=== PATIENT | male | born 1960 | race Caucasian/White ===

== ENCOUNTER 2017-09-25 20:30 | Emergency (ER) | payer SELFPAY ==
[2017-09-25 20:42] VITALS: BP 154/89; PULSE 82; RESP 20; TEMP 98; O2SAT 95
--- NOTE | 2017-09-25 20:51 | PD ---
HPI Chief Complaint: Alcohol/Drug Intoxication Time Seen by Provider: 20:43 Travel History International Travel<30 days: No Contact w/Intl Traveler<30days: No Traveled to known affect area: No History of Present Illness HPI patient has been sober for several months, for unknown reasons today patient had a relapse and has been drinking alcohol for several hours. pt denies all complaints currently. however is obviously intoxicated which inhibits an accurate history PFSH Social History Alcohol Use: Yes Tobacco Use: Yes Allergies-Medications (Allergen,Severity, Reaction): Coded Allergies: No Known Allergies (Unverified , 09/27/17) Reported Meds & Prescriptions Reported Meds & Active Scripts Active Reported Clonidine (Clonidine HCl) 0.3 Mg Tab 0.3 Mg PO BID Lisinopril 10 Mg Tab 10 Mg PO DAILY Atorvastatin (Atorvastatin Calcium) 40 Mg Tab 40 Mg PO HS Seroquel (Quetiapine Fumarate) 200 Mg Tab 200 Mg PO DAILY Flomax (Tamsulosin HCl) 0.4 Mg Cap 0.4 Mg PO HS Trazodone (Trazodone HCl) 100 Mg Tablet 100 Mg PO HS Review of Systems ROS Limitations: Intoxication Except as stated in HPI: all other systems reviewed are Neg Physical Exam Exam Limitations: Intoxication Narrative GENERAL: SKIN: Warm and dry. HEAD: Atraumatic. Normocephalic. EYES: Pupils equal and round. No scleral icterus. No injection or drainage. ENT: No nasal bleeding or discharge. Mucous membranes pink and moist. NECK: Trachea midline. No JVD. CARDIOVASCULAR: Regular rate and rhythm. RESPIRATORY: No accessory muscle use. Clear to auscultation. Breath sounds equal bilaterally. GASTROINTESTINAL: Abdomen soft, non-tender, nondistended. MUSCULOSKELETAL: Extremities without clubbing, cyanosis, or edema. No obvious deformities. NEUROLOGICAL: Awake and alert. No obvious cranial nerve deficits. Motor grossly within normal limits. Five out of 5 muscle strength in the arms and legs. Normal speech. PSYCHIATRIC: Appropriate mood and affect; insight and judgment normal. Data Data Last Documented VS Vital Signs Date Time Temp Pulse Resp B/P (MAP) Pulse Ox O2 Delivery O2 Flow Rate FiO2 09/26/17 06:32 09/26/17 00:45 80 16 100 Nasal Cannula 2.00 09/25/17 20:42 98.0 Orders Orders Basic Metabolic Panel (Bmp) (09/25/17 20:51) Complete Blood Count With Diff (09/25/17 20:51) Troponin I (09/25/17 20:51) Ct Brain W/O Iv Contrast(Rout) (09/25/17 20:51) Blood Glucose (09/25/17 20:51) Ecg Monitoring (09/25/17 20:51) Iv Access Insert/Monitor (09/25/17 20:51) Oximetry (09/25/17 20:51) Alcohol (Ethanol) (09/25/17 20:51) Tylenol (Acetaminophen) (09/25/17 20:51) Salicylates (Aspirin) (09/25/17 20:51) Sodium Chlor 0.9% 1000 Ml Inj (Ns 1000 M (09/25/17 21:00) Ed Discharge Order (09/26/17 06:25) Labs Laboratory Tests Test 09/25/17 21:05 White Blood Count 9.8 TH/MM3 Red Blood Count 4.48 MIL/MM3 Hemoglobin 13.9 GM/DL Hematocrit 41.5 % Mean Corpuscular Volume 92.7 FL Mean Corpuscular Hemoglobin 31.1 PG Mean Corpuscular Hemoglobin Concent 33.5 % Red Cell Distribution Width 14.3 % Platelet Count 243 TH/MM3 Mean Platelet Volume 8.2 FL Neutrophils (%) (Auto) 55.9 % Lymphocytes (%) (Auto) 29.3 % Monocytes (%) (Auto) 11.2 % Eosinophils (%) (Auto) 2.6 % Basophils (%) (Auto) 1.0 % Neutrophils # (Auto) 5.5 TH/MM3 Lymphocytes # (Auto) 2.9 TH/MM3 Monocytes # (Auto) 1.1 TH/MM3 Eosinophils # (Auto) 0.3 TH/MM3 Basophils # (Auto) 0.1 TH/MM3 CBC Comment DIFF FINAL Differential Comment Blood Urea Nitrogen 23 MG/DL Creatinine 1.45 MG/DL Random Glucose 119 MG/DL Calcium Level 8.1 MG/DL Sodium Level 142 MEQ/L Potassium Level 3.5 MEQ/L Chloride Level 108 MEQ/L Carbon Dioxide Level 24.5 MEQ/L Anion Gap 10 MEQ/L Estimat Glomerular Filtration Rate 51 ML/MIN Troponin I 0.04 NG/ML Salicylates Level LESS THAN 1.7 MG/DL Acetaminophen Level LESS THAN 2.0 MCG/ML Ethyl Alcohol Level 371 MG/DL MDM Medical Decision Making Medical Screen Exam Complete: Yes Emergency Medical Condition: Yes Medical Record Reviewed: Yes Differential Diagnosis ich v etoh intox v hypoglycemia Narrative Course CT HEAD NEG FOR ICH/SKULL FX...GLUCOSE NORMAL, AND ETOH WAS C/W INTOXICATION Diagnosis Primary Impression: Alcohol intoxication Qualified Codes: F10.920 - Alcohol use, unspecified with intoxication, uncomplicated Disposition: 01 DISCHARGE HOME Condition: Stable (ONCE SOBER, CAN D/C HOME) Santiago Bateman MD Sep 25, 2017 20:51
[2017-09-25 20:56] VITALS: RESP 18; O2SAT 98
[2017-09-25] MEDS ORDERED: TAMS5CAP PO (20:56)
[2017-09-25] MEDS ORDERED: ATOR40TA16 PO (20:56)
[2017-09-25] MEDS ORDERED: SERO200T PO (20:56)
[2017-09-25] MEDS ORDERED: TRAZ100T10 PO (20:56)
[2017-09-25] MEDS ORDERED: SODIUM CHLOR 0.9% 1000 ML INJ 1,000 ML IV ONE (21:00)
[2017-09-25 21:35] LABS: AUTOMATED NEUTROPHIL # 5.5 TH/MM3 (1.8-7.7); BASOPHIL # 0.1 TH/MM3 (0-0.2); EOSINOPHIL # 0.3 TH/MM3 (0-0.4); EOSINOPHIL % 2.6 % (0.0-4.0); HEMATOCRIT 41.5 % (39.0-51.0); HEMO FLAGS DIFF FINAL; LYMPH % 29.3 % (9.0-44.0); LYMPHOCYTE # 2.9 TH/MM3 (1.0-4.8); MEAN CELL VOLUME 92.7 FL (80.0-100.0); MEAN CORPUSCULAR HEMOGLOBIN 31.1 PG (27.0-34.0); MEAN CORPUSCULAR HGB CONC 33.5 % (32.0-36.0); MONO % 11.2 % (0.0-8.0); NEUT % 55.9 % (16.0-70.0); PLATELET COUNT 243 TH/MM3 (150-450); RED BLOOD COUNT 4.48 MIL/MM3 (4.50-5.90); RED CELL DISTRIBUTION WIDTH 14.3 % (11.6-17.2); WHITE BLOOD COUNT 9.8 TH/MM3 (4.0-11.0)
[2017-09-25 22:13] LABS: ANION GAP 10 MEQ/L (5-15); BICARBONATE 24.5 MEQ/L (21.0-32.0); BLOOD UREA NITROGEN 23 MG/DL (7-18); CHLORIDE 108 MEQ/L (98-107); GLOMERULAR FILTRATION RATE 51 ML/MIN (>89); POTASSIUM 3.5 MEQ/L (3.5-5.1); SODIUM (NA) 142 MEQ/L (136-145)
[2017-09-25 22:18] LABS: ACETAMINOPHEN LESS THAN 2.0 MCG/ML (10.0-30.0)
[2017-09-25 22:19] LABS: ALCOHOL 371 MG/DL (0-5)
--- NOTE | 2017-09-25 22:21 | RADRPT ---
EXAM DATE/TIME: 09/25/2017 21:28 [facility] COMPARISON: No previous studies available for comparison. INDICATIONS : Altered mental status. RADIATION DOSE: 55.26 CTDIvol (mGy) MEDICAL HISTORY : Non-responsive. SURGICAL HISTORY : Non-responsive. ENCOUNTER: Initial ACUITY: 1 day PAIN SCALE: Non-responsive LOCATION: cranial TECHNIQUE: Multiple contiguous axial images were obtained of the head. Using automated exposure control and adj ustment of the mA and/or kV according to patient size, radiation dose was kept as low as reasonably a chievable to obtain optimal diagnostic quality images. DICOM format image data is available electro nically for review and comparison. FINDINGS: CEREBRUM: The ventricles are normal for age. No evidence of midline shift, mass lesion, hemorrhage or acute in farction. No extra-axial fluid collections are seen. POSTERIOR FOSSA: The cerebellum and brainstem are intact. The 4th ventricle is midline. The cerebellopontine angle i s unremarkable. EXTRACRANIAL: The visualized portion of the orbits is intact. SKULL: The calvaria is intact. No evidence of skull fracture. CONCLUSION: Negative noncontrast CT brain. Felipe Walton MD on September 25, 2017 at 22:19 Board Certified Radiologist. This report was verified electronically.
[2017-09-26 00:45] VITALS: BP 126/70; PULSE 80; RESP 16; O2SAT 100
[2017-09-26] MEDS ORDERED: LISI10TA3 PO (19:07)
[2017-09-26] MEDS ORDERED: CLON0.3T PO (19:07)
== END 2017-09-26 07:17 | disposition home or self-care (01) ==
LOC: NEPD 20:30
DX: F10.129 Alcohol abuse with intoxication, unspecified (principal); Z79.899 Other long term (current) drug therapy
CPT/HCPCS: 70450; 80048; 80307; 84484; 85025; 96360; 96361; 99285; J7030

== ENCOUNTER 2017-09-26 14:24 | Emergency (ER) | payer OTHER ==
[~2017-09-26] VITALS: Ht 165.1 cm; Wt 97.5 kg
[~2017-09-26 14:24] MED LIST: ATOR40TA16 PO; SERO200T PO; TAMS5CAP PO; TRAZ100T10 PO
[2017-09-26 14:25] VITALS: BP 154/77; PULSE 90; RESP 20; TEMP 98.6; O2SAT 98
[2017-09-26] MEDS ORDERED: SODIUM CHLORIDE 0.9% FLUSH 10 ML FLUSH IVF PRN (15:00)
[2017-09-26] MEDS ORDERED: ASPIRIN 325 MG TAB PO ONE (15:00)
--- NOTE | 2017-09-26 15:05 | PD ---
HPI Chief Complaint: Chest Pain Time Seen by Provider: 15:02 Travel History International Travel<30 days: No Contact w/Intl Traveler<30days: No Traveled to known affect area: No History of Present Illness HPI 57 YO M with PMH of COPD, HTN, schizophrenia, depression presents to the ED for evaluation of 32 hour history of 8/10 right-sided chest pain that radiates to the left side. Patient endorses accompanying diaphoresis, palpitations, shortness of breath. He denies nausea and vomiting. 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 No alleviating factors or exacerbating factors reported. Patient denies recent history of fevers, productive cough. He also complains of depression, suicidal ideation. He states that he hears voices that tell him "just to end it." He has no specific plan. He thinks he may be more depressed because his daughter just had a baby. He states that he had a negative heart catheter 2 months ago in [facility]. He denies any illicit drug use or alcohol use. However, chart review reveals the patient was just discharged this morning after being intoxicated in the ED. PFSH Past Medical History High Cholesterol: Yes Social History Alcohol Use: Yes Tobacco Use: No Substance Use: No Allergies-Medications (Allergen,Severity, Reaction): Coded Allergies: No Known Allergies (Unverified , 09/25/17) Reported Meds & Prescriptions Reported Meds & Active Scripts Active Reported Atorvastatin (Atorvastatin Calcium) 40 Mg Tab 40 Mg PO HS Seroquel (Quetiapine Fumarate) 200 Mg Tab 200 Mg PO DAILY Flomax (Tamsulosin HCl) 0.4 Mg Cap 0.4 Mg PO HS Trazodone (Trazodone HCl) 100 Mg Tablet 100 Mg PO HS Review of Systems Except as stated in HPI: all other systems reviewed are Neg Physical Exam Narrative GENERAL: Well-nourished, well-developed obese white male in no acute distress. PSYCHIATRIC: Calm demeanor. Cooperative. He is not responding to internal stimuli. SKIN: Focused skin assessment warm/dry. HEAD: Normocephalic. EYES: No scleral icterus. No injection or drainage. NECK: Supple, trachea midline. No JVD or lymphadenopathy. CARDIOVASCULAR: Regular rate and rhythm without murmurs, gallops, or rubs. CHEST: Nontender throughout without deformity or crepitus. RESPIRATORY: Breath sounds clear and equal bilaterally. No accessory muscle use. GASTROINTESTINAL: Abdomen protuberant, soft, non-tender, nondistended. Active bowel sounds. MUSCULOSKELETAL: No cyanosis, or edema. BACK: Nontender without obvious deformity. No CVA tenderness. Data Data Last Documented VS Vital Signs Date Time Temp Pulse Resp B/P (MAP) Pulse Ox O2 Delivery O2 Flow Rate FiO2 09/26/17 15:49 97 Room Air 09/26/17 14:25 98.6 90 20 Orders Orders Complete Blood Count With Diff (09/26/17 15:00) Comprehensive Metabolic Panel (09/26/17 15:00) Electrocardiogram (09/26/17 15:00) Psych Screen (09/26/17 15:00) Drug Screen, Random Urine (09/26/17 15:00) Alcohol (Ethanol) (09/26/17 15:00) Troponin I (09/26/17 15:00) Ckmb (Isoenzyme) Profile (09/26/17 15:00) Magnesium (Mg) (09/26/17 15:00) Prothrombin Time / Inr (Pt) (09/26/17 15:00) Act Partial Throm Time (Ptt) (09/26/17 15:00) Chest, Single Ap (09/26/17 15:00) Ecg Monitoring (09/26/17 15:00) Bilateral Bp Monitoring (09/26/17 15:00) Iv Access Insert/Monitor (09/26/17 15:00) Oximetry (09/26/17 15:00) Aspirin (Aspirin) (09/26/17 15:00) Sodium Chloride 0.9% Flush (Ns Flush) (09/26/17 15:00) CKMB (09/26/17 15:36) CKMB% (09/26/17 15:36) Troponin I (09/26/17 18:00) Sodium Chlor 0.9% 1000 Ml Inj (Ns 1000 M (09/26/17 17:00) Calcium Carbonate (Oscal) (09/26/17 17:00) Labs Laboratory Tests Test 09/26/17 15:35 09/26/17 15:36 Urine Opiates Screen NEG Urine Barbiturates Screen NEG Urine Amphetamines Screen NEG Urine Benzodiazepines Screen NEG Urine Cocaine Screen NEG Urine Cannabinoids Screen NEG White Blood Count 9.2 TH/MM3 Red Blood Count 4.30 MIL/MM3 Hemoglobin 13.3 GM/DL Hematocrit 39.7 % Mean Corpuscular Volume 92.2 FL Mean Corpuscular Hemoglobin 30.9 PG Mean Corpuscular Hemoglobin Concent 33.6 % Red Cell Distribution Width 14.1 % Platelet Count 233 TH/MM3 Mean Platelet Volume 8.1 FL Neutrophils (%) (Auto) 71.2 % Lymphocytes (%) (Auto) 18.6 % Monocytes (%) (Auto) 8.7 % Eosinophils (%) (Auto) 0.7 % Basophils (%) (Auto) 0.8 % Neutrophils # (Auto) 6.6 TH/MM3 Lymphocytes # (Auto) 1.7 TH/MM3 Monocytes # (Auto) 0.8 TH/MM3 Eosinophils # (Auto) 0.1 TH/MM3 Basophils # (Auto) 0.1 TH/MM3 CBC Comment DIFF FINAL Differential Comment Prothrombin Time 10.7 SEC Prothromb Time International Ratio 1.0 RATIO Activated Partial Thromboplast Time 25.4 SEC Blood Urea Nitrogen 26 MG/DL Creatinine 1.56 MG/DL Random Glucose 98 MG/DL Total Protein 6.4 GM/DL Albumin 3.3 GM/DL Calcium Level 7.9 MG/DL Magnesium Level 2.2 MG/DL Alkaline Phosphatase 75 U/L Aspartate Amino Transf (AST/SGOT) 22 U/L Alanine Aminotransferase (ALT/SGPT) 27 U/L Total Bilirubin 0.3 MG/DL Sodium Level 143 MEQ/L Potassium Level 3.6 MEQ/L Chloride Level 110 MEQ/L Carbon Dioxide Level 22.3 MEQ/L Anion Gap 11 MEQ/L Estimat Glomerular Filtration Rate 46 ML/MIN Total Creatine Kinase 438 U/L Creatine Kinase MB 3.3 NG/ML Creatine Kinase MB % 0.8 % Troponin I 0.04 NG/ML Ethyl Alcohol Level 212 MG/DL [facility] Medical Decision Making Medical Screen Exam Complete: Yes Emergency Medical Condition: Yes Differential Diagnosis Chest pain versus ACS versus malingering versus Adjustment disorder versus anxiety versus bipolar versus depression versus dementia versus electrolyte disorder versus malingering versus mood disorder versus ODD versus psychosis versus PTSD versus schizophrenia versus schizoaffective disorder versus substance-induced mood disorder versus other Narrative Course 57 YO M with PMH of COPD, HTN, schizophrenia, depression presents to the ED for evaluation of 32 hour history of 8/10 right-sided chest pain that radiates to the left side. Patient endorses accompanying diaphoresis, palpitations, shortness of breath. He denies nausea and vomiting. 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 No alleviating factors or exacerbating factors reported. Patient denies recent history of fevers, productive cough. He also complains of depression, suicidal ideation. He states that he hears voices that tell him "just to end it." He thinks he may be more depressed because his daughter just had a baby. He states that he had a negative heart catheter 2 months ago in [facility]. He denies any illicit drug use or alcohol use. However, chart review reveals the patient was just discharged this morning after being intoxicated in the ED. Vitals reviewed. Physical exam is reassuring. EKG: Rate 89, sinus rhythm with first-degree AV block. LAD. Q wave in V3 V4. Reviewed by CXR: No acute disease. Cardiac enzymes negative 1. BUN 26. Creatinine 1.56. Calcium 7.9. Patient was administered 1 L normal saline, 1 g calcium by mouth. On recheck he is sleeping. We'll order a second troponin for 6 PM. He is medically clear for psychiatric evaluation. Stefania Ang Sep 26, 2017 15:05
--- NOTE | 2017-09-26 15:40 | RADRPT ---
EXAM DATE/TIME: 09/26/2017 15:18 [facility] COMPARISON: No previous studies available for comparison. INDICATIONS : Chest pain. MEDICAL HISTORY : Chronic obstructive pulmonary disease. SURGICAL HISTORY : None. ENCOUNTER: Initial ACUITY: 2 days PAIN SCORE: 7/10 LOCATION: Bilateral chest FINDINGS: A single view of the chest demonstrates the lungs to be symmetrically aerated without evidence of mas s, infiltrate or effusion. The cardiomediastinal contours are unremarkable. Osseous structures are intact. CONCLUSION: 1. Negative portable chest. Kendrick Moreira MD on September 26, 2017 at 15:38 Board Certified Radiologist. This report was verified electronically.
[2017-09-26 15:49] VITALS: O2SAT 97
[2017-09-26 16:04] LABS: AUTOMATED NEUTROPHIL # 6.6 TH/MM3 (1.8-7.7); BASOPHIL # 0.1 TH/MM3 (0-0.2); BASOPHIL % 0.8 % (0.0-2.0); EOSINOPHIL # 0.1 TH/MM3 (0-0.4); EOSINOPHIL % 0.7 % (0.0-4.0); HEMATOCRIT 39.7 % (39.0-51.0); HEMO FLAGS DIFF FINAL; LYMPH % 18.6 % (9.0-44.0); LYMPHOCYTE # 1.7 TH/MM3 (1.0-4.8); MEAN CELL VOLUME 92.2 FL (80.0-100.0); MEAN CORPUSCULAR HEMOGLOBIN 30.9 PG (27.0-34.0); MEAN CORPUSCULAR HGB CONC 33.6 % (32.0-36.0); MONO % 8.7 % (0.0-8.0); NEUT % 71.2 % (16.0-70.0); PLATELET COUNT 233 TH/MM3 (150-450); RED CELL DISTRIBUTION WIDTH 14.1 % (11.6-17.2); WHITE BLOOD COUNT 9.2 TH/MM3 (4.0-11.0)
[2017-09-26 16:10] LABS: APTT (PATIENT) 25.4 SEC (24.3-30.1); PROTHROMBIN TIME - PATIENT 10.7 SEC (9.8-11.6)
[2017-09-26 16:28] LABS: ANION GAP 11 MEQ/L (5-15); AST (GOT) 22 U/L (15-37); BICARBONATE 22.3 MEQ/L (21.0-32.0); BLOOD UREA NITROGEN 26 MG/DL (7-18); CHLORIDE 110 MEQ/L (98-107); GLOMERULAR FILTRATION RATE 46 ML/MIN (>89); MAGNESIUM 2.2 MG/DL (1.5-2.5); POTASSIUM 3.6 MEQ/L (3.5-5.1); SODIUM (NA) 143 MEQ/L (136-145)
[2017-09-26 16:33] LABS: ALKALINE PHOSPHATASE 75 U/L (45-117); ALT (GPT) 27 U/L (12-78); CREATINE KINASE 438 U/L (39-308); TOTAL BILIRUBIN ADULT 0.3 MG/DL (0.2-1.0)
[2017-09-26 16:34] LABS: ALCOHOL 212 MG/DL (0-5)
[2017-09-26 16:46] LABS: CKMB 3.3 NG/ML (0.5-3.6)
[2017-09-26] MEDS ORDERED: CALCIUM CARBONATE 1.25 GM (CA 500 MG) TAB PO ONE (17:00)
[2017-09-26] MEDS ORDERED: SODIUM CHLOR 0.9% 1000 ML INJ 1,000 ML IV ONE (17:00)
[2017-09-26] MEDS ORDERED: LORazepam 2 MG/ML VIAL IV PUSH ONE (18:30)
[2017-09-26 19:03] VITALS: BP 197/114; RESP 18; O2SAT 96
[2017-09-26] MEDS ORDERED: LISI10TA3 PO (19:07)
[2017-09-26] MEDS ORDERED: CLON0.3T PO (19:07)
[2017-09-26] MEDS ORDERED: LORazepam 2 MG/ML VIAL IV PUSH PRN ×4 (19:30)
[2017-09-26] MEDS ORDERED: LORazepam 1 MG TAB PO PRN (19:30)
[2017-09-26] MEDS ORDERED: FLUMAZENIL 0.5 MG/5 ML VIAL IV PUSH PRN (19:30)
[2017-09-26] MEDS ORDERED: LORazepam 2 MG TAB PO PRN (19:30)
[2017-09-26] MEDS ORDERED: cloNIDine HCL 0.2 MG TAB PO ONE (19:45)
[2017-09-26] MEDS ORDERED: cloNIDine HCL 0.1 MG TAB PO ONE (19:45)
[2017-09-26] MEDS ORDERED: LISINOPRIL 10 MG TAB PO ONE (20:30)
[2017-09-26 21:09] VITALS: BP 179/114; PULSE 78; RESP 18; O2SAT 96
[2017-09-26 22:10] VITALS: BP 184/79; PULSE 79; RESP 18; O2SAT 96
--- NOTE | 2017-09-26 22:38 | PD ---
History of Present Illness Chief Complaint: Chest Pain Time Seen by Provider: 22:25 Travel History International Travel<30 Days: No Contact w/Intl Traveler<30days: No Known affected area: No Legal Status Legal Status: Voluntary History of Present Illness: History of Present Illness HPI 57 year old male with history of alcohol dependence who presents to the emergency department for evaluation of chest pain. Psychiatric screen was ordered on this patient as he reported to ED provider that he was feeling depressed, that he was hearing voices telling him to just end it. Patient had presented to the ED on 26 July with a blood alcohol level of 371. He was allowed to sober up clinically and was discharged. He presents a second time to the emergency room complaining of chest pain. His blood alcohol level at the time of his second visit was 212. He is seen in main ED. He is clinically sober at this time. His speech is clear, logical, goal-directed. There is no evidence of any psychosis, no adarsh , no hypomania. He reports that he has a history of hearing voices inside of his head but that he is not hearing them now. His affect is variable and appropriate. Speech is of normal rate, rhythm, normal tone. Patient reports that he is feeling depressed due to several losses. When asked about the losses he reports he lost his son in a motorcycle accident 15 years ago, his mother one year later, and that his fiance also shortly after. Patient reports that he moved to [place] 2 weeks ago from [place] to be close to his daughter would just had a baby. He had been living in a sober living facility in [place] where he had been for 5 months. He is living now at the [facility] which is also a sober living facility. He alludes to the possibility that he may not have a place to go since he has had a relapse and has began to drink alcohol. There is no suicidal or homicidal ideation, intent, or plan. In terms of psychiatric history he denies any previous psychiatric hospitalization. Denies any previous suicidal attempt. And reports that he began taking trazodone and Seroquel 2 months ago for sleep. PFSH Past Medical History High Cholesterol: Yes Psychiatric History Psychiatric History Hx Psychiatric Treatment: No history of inpatient treatment. No past history of suicidal attempt. Began taking trazodone and Seroquel 2 months ago. History of Inpatient Treatment: No Guns or firearms in home: No Social History male who was born in [place] but raised in [place]. Has a daughter who lives in the area and a 5-month-old granddaughter. 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 Is currently living in a sober living home. Hx Alcohol Use: Yes Hx Tobacco Use: No Hx Substance Use: No Substance Use Type: Alcohol Hx of Substance Use Treatment: Yes Family Psychiatric History Negative Allergies-Medications (Allergen,Severity, Reaction): Coded Allergies: No Known Allergies (Unverified , 09/25/17) Reported Meds & Prescriptions Reported Meds & Active Scripts Active Reported Clonidine (Clonidine HCl) 0.3 Mg Tab 0.3 Mg PO BID Lisinopril 10 Mg Tab 10 Mg PO DAILY Atorvastatin (Atorvastatin Calcium) 40 Mg Tab 40 Mg PO HS Seroquel (Quetiapine Fumarate) 200 Mg Tab 200 Mg PO DAILY Flomax (Tamsulosin HCl) 0.4 Mg Cap 0.4 Mg PO HS Trazodone (Trazodone HCl) 100 Mg Tablet 100 Mg PO HS Review of Systems Cardiovascular: COMPLAINS OF: Chest pain Except as stated in HPI: all other systems reviewed are Neg Mental Status Examination Appearance: Appropriate Consciousness: Alert Orientation: x4 Motor Activity: Other (patient remained in bed) Speech: Unremarkable Language: Adequate Fund of Knowledge: Adequate Attention and Concentration: Adequate Memory: Unremarkable Mood: Appropriate Affect: Appropriate Thought Process & Associations: Intact Thought Content: Appropriate Hallucination Type: None Delusion Type: None Suicidal Ideation: No Suicidal Plan: No Suicidal Intention: No Homicidal Ideation: No Homicidal Plan: No Homicidal Intention: No Insight: Poor Judgment: Adequate [facility] Medical Decision Making Medical Record Reviewed: Yes Assessment/Plan 57-year-old male with history of alcohol dependence who reports he has had a relapse after a 5 month period of sobriety. He presented to the ED yesterday with a blood alcohol level of 371. This afternoon he comes in for complaining of chest pain but was also determined to be under the influence with a blood alcohol level of 212. The patient has been living in a sober living house called the [facility] but I suspect that since he has been drinking he may have lost his residence. The patient reported to ED staff that he was hearing voices but he does not appear to be internally preoccupied and he denies that he is hearing them now. He does not appear to be significantly depressed and shows no significant objective clinical symptoms of depression. He has not suicidal or homicidal at this time. I strongly suspect that his alcohol relapse is prompting this visit to the hospital. He is provided psychoeducation. He is provided with the numbers to [facility] and he is advised to present himself to their outpatient clinic Sunday by 7:30 to initiate treatment if he so wishes. Patient at this time does not meet criteria for inpatient psychiatric treatment. Psychiatrically clear for discharge from ED Orders Orders Complete Blood Count With Diff (09/26/17:) Comprehensive Metabolic Panel (09/26/17:) Electrocardiogram (09/26/17:) Psych Screen (09/26/17:) Drug Screen, Random Urine (09/26/17:) Alcohol (Ethanol) (09/26/17:) Troponin I (09/26/17:) Ckmb (Isoenzyme) Profile (09/26/17:) Magnesium (Mg) (09/26/17:) Prothrombin Time / Inr (Pt) (09/26/17:) Act Partial Throm Time (Ptt) (09/26/17:) Chest, Single Ap (09/26/17:) Ecg Monitoring (09/26/17:) Bilateral Bp Monitoring (09/26/17:) Iv Access Insert/Monitor (09/26/17:) Oximetry (09/26/17:) Aspirin (Aspirin) (09/26/17:) Sodium Chloride 0.9% Flush (Ns Flush) (09/26/17 15:00) CKMB (09/26/17 15:36) CKMB% (09/26/17 15:36) Troponin I (09/26/17 18:00) Sodium Chlor 0.9% 1000 Ml Inj (Ns 1000 M (09/26/17 17:00) Calcium Carbonate (Oscal) (09/26/17 17:00) Lorazepam Inj (Ativan Inj) (09/26/17 18:30) Alcohol Withdrawal Asmt-Ciwa ONCE (09/26/17 19:30) Flumazenil Inj (Romazicon Inj) (09/26/17 19:30) Lorazepam (Ativan) (09/26/17 19:30) Lorazepam Inj (Ativan Inj) (09/26/17 19:30) Lorazepam (Ativan) (09/26/17 19:30) Lorazepam Inj (Ativan Inj) (09/26/17 19:30) Lorazepam Inj (Ativan Inj) (09/26/17 19:30) Lorazepam Inj (Ativan Inj) (09/26/17 19:30) Clonidine (Catapres) (09/26/17 19:45) Diet Heart Healthy (09/26/17 Dinner) Lisinopril (Prinivil) (09/26/17 20:30) Results Vital Signs Date Time Temp Pulse Resp B/P (MAP) Pulse Ox O2 Delivery O2 Flow Rate FiO2 09/26/17 22:10 79 18 184/79 (114) 96 Room Air 09/26/17 21:09 78 18 179/114 (135) 96 09/26/17 19:03 95 Room Air 09/26/17 19:03 18 197/114 (141) 96 Nasal Cannula 2.00 09/26/17 15:49 97 Room Air 09/26/17 15:49 97 Room Air 09/26/17 14:25 98.6 90 20 154/77 (102) 98 Room Air Laboratory Tests Test 09/26/17 15:35 09/26/17 15:36 Urine Opiates Screen NEG Urine Barbiturates Screen NEG Urine Amphetamines Screen NEG Urine Benzodiazepines Screen NEG Urine Cocaine Screen NEG Urine Cannabinoids Screen NEG White Blood Count 9.2 Red Blood Count 4.30 Hemoglobin 13.3 Hematocrit 39.7 Mean Corpuscular Volume 92.2 Mean Corpuscular Hemoglobin 30.9 Mean Corpuscular Hemoglobin Concent 33.6 Red Cell Distribution Width 14.1 Platelet Count 233 Mean Platelet Volume 8.1 Neutrophils (%) (Auto) 71.2 Lymphocytes (%) (Auto) 18.6 Monocytes (%) (Auto) 8.7 Eosinophils (%) (Auto) 0.7 Basophils (%) (Auto) 0.8 Neutrophils # (Auto) 6.6 Lymphocytes # (Auto) 1.7 Monocytes # (Auto) 0.8 Eosinophils # (Auto) 0.1 Basophils # (Auto) 0.1 CBC Comment DIFF FINAL Differential Comment Prothrombin Time 10.7 Prothromb Time International Ratio 1.0 Activated Partial Thromboplast Time 25.4 Blood Urea Nitrogen 26 Creatinine 1.56 Random Glucose 98 Total Protein 6.4 Albumin 3.3 Calcium Level 7.9 Magnesium Level 2.2 Alkaline Phosphatase 75 Aspartate Amino Transf (AST/SGOT) 22 Alanine Aminotransferase (ALT/SGPT) 27 Total Bilirubin 0.3 Sodium Level 143 Potassium Level 3.6 Chloride Level 110 Carbon Dioxide Level 22.3 Anion Gap 11 Estimat Glomerular Filtration Rate 46 Total Creatine Kinase 438 Creatine Kinase MB 3.3 Creatine Kinase MB % 0.8 Troponin I 0.04 Ethyl Alcohol Level 212 Diagnosis Primary Impression: Alcohol dependence with intoxication Psychiatrically Cleared: Yes Med/ Other Pt Specific Info: No Change to Meds Disposition: 01 DISCHARGE HOME Condition: Stable Problem Qualifiers Primary Impression: Alcohol dependence with intoxication Qualified Codes: F10.220 - Alcohol dependence with intoxication, uncomplicated Mary Valladares [facility] Sep 26, 2017 22:38
--- NOTE | 2017-09-26 22:44 | PD ---
Physical Exam Date Seen by Provider: Sep 26, 2017 Time Seen by Provider: 22:42 Data Data Last Documented VS Vital Signs Date Time Temp Pulse Resp B/P (MAP) Pulse Ox O2 Delivery O2 Flow Rate FiO2 09/26/17 22:10 79 18 184/79 (114) 96 Room Air 09/26/17 19:03 2.00 09/26/17 14:25 98.6 Orders Orders Complete Blood Count With Diff (09/26/17 15:00) Comprehensive Metabolic Panel (09/26/17 15:00) Electrocardiogram (09/26/17 15:00) Psych Screen (09/26/17 15:00) Drug Screen, Random Urine (09/26/17 15:00) Alcohol (Ethanol) (09/26/17 15:00) Troponin I (09/26/17 15:00) Ckmb (Isoenzyme) Profile (09/26/17 15:00) Magnesium (Mg) (09/26/17 15:00) Prothrombin Time / Inr (Pt) (09/26/17 15:00) Act Partial Throm Time (Ptt) (09/26/17 15:00) Chest, Single Ap (09/26/17 15:00) Ecg Monitoring (09/26/17 15:00) Bilateral Bp Monitoring (09/26/17 15:00) Iv Access Insert/Monitor (09/26/17 15:00) Oximetry (09/26/17 15:00) Aspirin (Aspirin) (09/26/17 15:00) Sodium Chloride 0.9% Flush (Ns Flush) (09/26/17 15:00) CKMB (09/26/17 15:36) CKMB% (09/26/17 15:36) Troponin I (09/26/17 18:00) Sodium Chlor 0.9% 1000 Ml Inj (Ns 1000 M (09/26/17 17:00) Calcium Carbonate (Oscal) (09/26/17 17:00) Lorazepam Inj (Ativan Inj) (09/26/17 18:30) Alcohol Withdrawal Asmt-Ciwa ONCE (09/26/17 19:30) Flumazenil Inj (Romazicon Inj) (09/26/17 19:30) Lorazepam (Ativan) (09/26/17 19:30) Lorazepam Inj (Ativan Inj) (09/26/17 19:30) Lorazepam (Ativan) (09/26/17 19:30) Lorazepam Inj (Ativan Inj) (09/26/17 19:30) Lorazepam Inj (Ativan Inj) (09/26/17 19:30) Lorazepam Inj (Ativan Inj) (09/26/17 19:30) Clonidine (Catapres) (09/26/17 19:45) Diet Heart Healthy (09/26/17 Dinner) Lisinopril (Prinivil) (09/26/17 20:30) Ed Discharge Order (09/26/17 22:42) Labs Laboratory Tests Test 09/26/17 15:35 09/26/17 15:36 Urine Opiates Screen NEG Urine Barbiturates Screen NEG Urine Amphetamines Screen NEG Urine Benzodiazepines Screen NEG Urine Cocaine Screen NEG Urine Cannabinoids Screen NEG White Blood Count 9.2 TH/MM3 Red Blood Count 4.30 MIL/MM3 Hemoglobin 13.3 GM/DL Hematocrit 39.7 % Mean Corpuscular Volume 92.2 FL Mean Corpuscular Hemoglobin 30.9 PG Mean Corpuscular Hemoglobin Concent 33.6 % Red Cell Distribution Width 14.1 % Platelet Count 233 TH/MM3 Mean Platelet Volume 8.1 FL Neutrophils (%) (Auto) 71.2 % Lymphocytes (%) (Auto) 18.6 % Monocytes (%) (Auto) 8.7 % Eosinophils (%) (Auto) 0.7 % Basophils (%) (Auto) 0.8 % Neutrophils # (Auto) 6.6 TH/MM3 Lymphocytes # (Auto) 1.7 TH/MM3 Monocytes # (Auto) 0.8 TH/MM3 Eosinophils # (Auto) 0.1 TH/MM3 Basophils # (Auto) 0.1 TH/MM3 CBC Comment DIFF FINAL Differential Comment Prothrombin Time 10.7 SEC Prothromb Time International Ratio 1.0 RATIO Activated Partial Thromboplast Time 25.4 SEC Blood Urea Nitrogen 26 MG/DL Creatinine 1.56 MG/DL Random Glucose 98 MG/DL Total Protein 6.4 GM/DL Albumin 3.3 GM/DL Calcium Level 7.9 MG/DL Magnesium Level 2.2 MG/DL Alkaline Phosphatase 75 U/L Aspartate Amino Transf (AST/SGOT) 22 U/L Alanine Aminotransferase (ALT/SGPT) 27 U/L Total Bilirubin 0.3 MG/DL Sodium Level 143 MEQ/L Potassium Level 3.6 MEQ/L Chloride Level 110 MEQ/L Carbon Dioxide Level 22.3 MEQ/L Anion Gap 11 MEQ/L Estimat Glomerular Filtration Rate 46 ML/MIN Total Creatine Kinase 438 U/L Creatine Kinase MB 3.3 NG/ML Creatine Kinase MB % 0.8 % Troponin I 0.04 NG/ML Ethyl Alcohol Level 212 MG/DL MDM Supervised Visit with [facility]: No Narrative Course 57-year-old male presents with complaints of chest pain and suicidal ideation. He is medically clear by me earlier in the day. He was evaluated [facility] cleared from a psychiatric standpoint. Patient is malingering due to alcohol intoxication. He is currently living in a sober house. He is instructed to seek outpatient treatments for alcohol use. BP improved with home medications. He is stable and discharged home. Diagnosis Primary Impression: Malingering Additional Impressions: Alcohol abuse Alcohol intoxication Qualified Codes: F10.920 - Alcohol use, unspecified with intoxication, uncomplicated Referrals: [facility] (Out patient) Additional Instruction: Follow up with [facility] for outpatient treatment of alcoholism. Disposition: 01 DISCHARGE HOME Condition: Stable Stefania Ang Sep 26, 2017 22:44
--- NOTE | 2017-09-27 10:40 | EKG ---
Date Performed: 09/26/2017 Time Performed: 15:47:38 PTAGE: 57 years EKG: Sinus rhythm WITH FIRST DEGREE AV BLOCK MARKED LEFT AXIS DEVIATION POSSIBLE ANTERIOR MYOCARDIAL INFARCTION ABNORM AL ECG NO PREVIOUS TRACING DOCTOR: Kvng Gibson Interpretating Date/Time 09/27/2017 10:39:23
== END 2017-09-26 23:25 | disposition home or self-care (01) ==
LOC: NEPC 14:24
DX: F10.220 Alcohol dependence with intoxication, uncomplicated (principal); E78.00 Pure hypercholesterolemia, unspecified; Y90.7 Blood alcohol level of 200-239 mg/100 ml; Z76.5 Malingerer [conscious simulation]; Z79.899 Other long term (current) drug therapy
CPT/HCPCS: 71010; 80053; 80307; 82550; 82552; 83735; 84484; 85025; 85610; 85730; 93005; 96374; 99285; J2060; J7030

== ENCOUNTER 2017-09-27 03:05 | Observation (INO) | payer SELFPAY ==
[~2017-09-27] VITALS: Ht 165.1 cm; Wt 115.0 kg
[~2017-09-27 03:05] MED LIST changes: +CLON0.3T PO; +LISI10TA3 PO
[2017-09-27 03:06] VITALS: BP 220/143; PULSE 74; RESP 16; TEMP 97.7; O2SAT 96
[2017-09-27 03:33] VITALS: BP 219/100; PULSE 70; RESP 20; O2SAT 100
--- NOTE | 2017-09-27 03:39 | PD ---
HPI Chief Complaint: Chest Pain Time Seen by Provider: 03:17 Travel History International Travel<30 days: No Contact w/Intl Traveler<30days: No Traveled to known affect area: No History of Present Illness HPI Patient is a 57-year-old male with history of hypertension, COPD, schizophrenia , depression, return to the emergency room complaints of chest pain with suicidal ideations. Patient was seen in the emergency room earlier today, with similar complaints, reports that he never left the emergency room and was in the waiting room the whole time. Patient reports that while in the waiting room , began to have right-sided chest pain. Patient reports that chest pain is sharp and stabbing in nature, reports no shortness of breath or diaphoresis with his symptoms. Patient reports that nothing makes chest pain better or worse. Patient reports that chest pain is not associated with shortness of breath or diaphoresis. Patient reports that he has been having palpitations. He does report that he had a cardiac catheter 2 months ago in [facility] which was negative, denies history of cardiac stents. Patient reports that he is also very depressed as he just moved to this area from [place]. Patient reports that he is depressed as he has a lot of family issues. Patient reports that he has no active plans for suicide at this time. Patient reports that he does feel suicidal at this time. PFSH Past Medical History Depression: Yes Cardiac Catheterization: Yes High Cholesterol: Yes Coronary Artery Disease: Yes Hypertension: Yes Schizophrenia: Yes Social History Alcohol Use: Yes Tobacco Use: No Substance Use: No Allergies-Medications (Allergen,Severity, Reaction): Coded Allergies: No Known Allergies (Unverified , 09/27/17) Reported Meds & Prescriptions Reported Meds & Active Scripts Active Reported Clonidine (Clonidine HCl) 0.3 Mg Tab 0.3 Mg PO BID Lisinopril 10 Mg Tab 10 Mg PO DAILY Atorvastatin (Atorvastatin Calcium) 40 Mg Tab 40 Mg PO HS Seroquel (Quetiapine Fumarate) 200 Mg Tab 200 Mg PO DAILY Flomax (Tamsulosin HCl) 0.4 Mg Cap 0.4 Mg PO HS Trazodone (Trazodone HCl) 100 Mg Tablet 100 Mg PO HS Review of Systems General / Constitutional: No: Fever Eyes: No: Visual changes HENT: No: Headaches Cardiovascular: Positive: Chest Pain or Discomfort, Palpitations Respiratory: No: Shortness of Breath Gastrointestinal: No: Abdominal Pain Genitourinary: No: Dysuria Musculoskeletal: No: Pain Skin: No Rash Neurologic: No: Weakness Psychiatric: Positive: Depression, Suicidal Ideations, Substance Abuse, No: Homicidal Ideation Endocrine: No: Polydipsia Hematologic/Lymphatic: No: Easy Bruising Physical Exam Narrative GENERAL: No acute distress, nontoxic SKIN: Focused skin assessment warm/dry. HEAD: Atraumatic. Normocephalic. EYES: Pupils equal and round. No scleral icterus. No injection or drainage. ENT: No nasal bleeding or discharge. Mucous membranes pink and moist. NECK: Trachea midline. No JVD. CARDIOVASCULAR: Regular rate and rhythm. No murmur appreciated. RESPIRATORY: No accessory muscle use. Clear to auscultation. Breath sounds equal bilaterally. GASTROINTESTINAL: Abdomen soft, non-tender, nondistended. Hepatic and splenic margins not palpable. MUSCULOSKELETAL: No obvious deformities. No clubbing. No cyanosis. No edema. NEUROLOGICAL: Awake and alert. No obvious cranial nerve deficits. Motor grossly within normal limits. Normal speech. PSYCHIATRIC: Flat mood and affect Data Data Last Documented VS Vital Signs Date Time Temp Pulse Resp B/P (MAP) Pulse Ox O2 Delivery O2 Flow Rate FiO2 09/27/17 03:33 70 20 219/100 (139) 100 Room Air 09/27/17 03:06 97.7 Orders Orders Electrocardiogram (09/27/17 ) Electrocardiogram (09/27/17 ) Ckmb (Isoenzyme) Profile (09/27/17 03:32) Troponin I (09/27/17 03:32) Alcohol (Ethanol) (09/27/17 03:32) Clonidine (Catapres) (09/27/17 03:45) CKMB (09/27/17 03:35) CKMB% (09/27/17 03:35) Aspirin (Aspirin) (09/27/17 04:30) Place In Observation (09/27/17 04:31) Activity Bed Rest With Brp (09/27/17 04:31) Vital Signs (Adult) Q4H (09/27/17 04:31) Cardiac Rhythm .As Directed (09/27/17 04:31) Notify Dr: Other .PRN (09/27/17 04:31) Notify . Parameters (09/27/17 04:31) Ckmb (Isoenzyme) Profile (09/27/17 06:35) Ckmb (Isoenzyme) Profile (09/27/17 09:35) Troponin I (09/27/17 06:35) Troponin I (09/27/17 09:35) Electrocardiogram (09/27/17 04:31) Electrocardiogram (09/27/17 07:31) ^ Obtain (09/27/17 04:31) Geothermal Production Manager / Telemetry [email or web address] (09/27/17 04:31) Admit Order (Ed Use Only) (09/27/17 04:45) Labs Laboratory Tests Test 09/27/17 03:35 Total Creatine Kinase 438 U/L Creatine Kinase MB 4.0 NG/ML Creatine Kinase MB % 0.9 % Troponin I 0.05 NG/ML Ethyl Alcohol Level LESS THAN 3 MG/DL MDM Medical Decision Making Medical Screen Exam Complete: Yes Emergency Medical Condition: Yes Medical Record Reviewed: Yes Interpretation(s) EKG at 0326: NSR at 70bpm, qt/qtc: 429/449, 1st degree av block, no acute st or t wave changes Vital Signs Date Time Temp Pulse Resp B/P (MAP) Pulse Ox O2 Delivery O2 Flow Rate FiO2 09/27/17 03:06 97.7 74 16 220/143 (168) 96 Room Air Differential Diagnosis Accelerated hypertension, malingering, suicidal evaluations, alcohol abuse, arrhythmia, coronary artery disease though unlikely Narrative Course 57-year-old male who returns to the emergency for evaluation of chest pain with palpitations along with depression with suicidal thoughts. This patient's second visit to the emergency room in 2 days, she was seen on September 25, 2017 and was diagnosed with acute alcohol intoxication. He was seen again on September 26, 2017 and again was again diagnosed with alcohol intoxication, during the course of his 2 ER visits, he has had cardiac enzymes: Troponin on September 25, 2017 was 0.04, alcohol level is 371 Troponin on September 26, 2017 0.04 at 1536, alcohol level was 212 X-ray of the chest shows no acute process. Patient was placed on a maintenance of way supervisor upon arrival to the emergency room. EKG was ordered which showed no acute changes. One set of cardiac enzymes ordered. I did review [facility] psychiatric evaluation from September 26, 2017, patient has history of alcohol dependence and has relapsed after a five-month period of sobriety. He lives at a [facility], there is suspicion that he may have lost his residence due to his drinking. He was provided psycho education as well as number to [facility] which he was advised to follow-up on Sunday at 7:30 tonight if he wished to initiate treatment if he wishes. Patient again presents to emergency room with complaints of suicidal thoughts, patient reports that he was told to return to the ER for re-evaluation should symptoms return. He does present to the ER voluntarily. I do have a suspicion that patient is malingering at this time as he never left the emergency room to go back home to [place] where patient reports he was staying. Plan to treat patient's hypertension with a dose of clonidine, one set of cardiac enzymes ordered, EKG ordered, patient will be placed on a maintenance of way supervisor for monitoring, plan to clear for psychiatric screening and once labs have been resulted. Laboratory Tests Test 09/27/17 03:35 Total Creatine Kinase 438 U/L (39-308) Creatine Kinase MB 4.0 NG/ML (0.5-3.6) Creatine Kinase MB % 0.9 % (0.0-4.0) Troponin I 0.05 NG/ML (0.02-0.05) Ethyl Alcohol Level LESS THAN 3 MG/DL (0-5) ckmb mildly elevated at this time, bp elevated, will obs in chest pain unit Diagnosis Primary Impression: Hypertension Additional Impressions: Chest pain Suicidal ideation Admitting Information Admitting Physician Requests: Observation Referrals: [facility] Patient Instructions: General Instructions Additional Instructions: Please provide patient with a copy of their lab work and studies at discharge* * Please follow up with your primary care doctor in 2-3 days Return to the ER if symptoms worsen or progress Return to the ER as needed Please follow-up with your microsoft office instructor as soon as possible Please drink alcohol responsibility Please follow-up with [facility] on Sunday as scheduled Trini Ruth DO Sep 27, 2017 03:39
[2017-09-27] MEDS ORDERED: cloNIDine HCL 0.1 MG TAB PO ONE (03:45)
[2017-09-27 04:15] LABS: ALCOHOL LESS THAN 3 MG/DL (0-5); CREATINE KINASE 438 U/L (39-308)
[2017-09-27] MEDS: ASPIRIN 325 MG TAB PO ONE ×2 (04:34→04:38)
[2017-09-27] MEDS ORDERED: hydrALAZINE HCL 20 MG/ML VIAL IV PUSH ONE (05:15)
[2017-09-27 05:59] VITALS: BP_SYST 169; BP_SYST 212; BP_DIAS 110; BP_DIAS 91; PULSE 72
[2017-09-27 07:52] VITALS: BP 173/108; PULSE 90; RESP 18; TEMP 98; O2SAT 99
[2017-09-27 08:09] LABS: CKMB 3.4 NG/ML (0.5-3.6)
--- NOTE | 2017-09-27 08:45 | HHI.HP ---
HPI Primary Care Physician No Primary Care Physician Chief Complaint Chest pain History of Present Illness This is a 57-year-old male with history of hypertension, hyperlipidemia, schizophrenia, anxiety, depression, alcoholism that presents with primary complaint of chest discomfort. This is patient's third visit in 2 days for similar complaint. States it is a right-sided chest discomfort that radiates to the center of his chest, the lower portion of his chest further to the right of his chest. States it moves around. Then states "I think I'm having a breakdown." I specifically asked the patient if he is having any suicidal thoughts and he stated no. The more specifically asked him if he wanted to kill himself and patient states "I do not want to kill myself." Then he asks where he can go. I really didn't understand what he meant, so I asked him to further discuss this. He stated that he is on probation for grand theft auto and further probation was he had to complete an alcohol abuse program. He was in [place] for a program but moved to this area to complete the program because his daughter lives in [place]. He wanted to be close to her. States he had been sober for 1 year. He relapsed on 09/25 and states he drank 1/2 pint of vodka. He states that he is not allowed back in the sober house that he was residing in. I asked the patient about his cardiac history. Patient states that he had a "negative heart catheterization in [facility] 2 months ago." He had a stress test prior that but really does not know the results. He was unable to walk on the treadmill and subsequently had a chemical stress test. Patient currently is denying chest discomfort. Review of Systems General: Patient denies fevers, chills recent, and recent travel HEENT: Patient denies headache, sore throat, difficulty swallowing. Cardiovascular: Has the chest discomfort as mentioned above. Denies sensation of heart beating rapidly or irregularly. No syncope. Denies diaphoresis. Respiratory: He was short of breath. Denies inspirational chest discomfort. Denies coughing wheezing or hemoptysis. GI: Patient denies nausea, vomiting, diarrhea, abdominal pain, bloody stools. Musculoskeletal: Patient denies joint pain or edema. Denies calf pain or edema. Neurovascular: Patient denies numbness, tingling, weakness in extremities. Denies headache. Psych: Patient states he is very anxious. Feels depressed. I asked if he was having suicidal thoughts and he denied it. This was repeated by the patient in front of the nurse that is also taking care of the patient. Endocrine: Denies polyuria and polydipsia. Hematologic: Denies easy bruising. Skin: Denies rash or itching. Past Family Social History Allergies: Coded Allergies: No Known Allergies (Unverified , 09/27/17) Past Medical History Hypertension, hyperlipidemia, schizophrenia, anxiety, depression, alcoholism. Denies diabetes and CAD. Past Surgical History Patient reports a cardiac catheterization 2 months ago in [facility]. Reported Medications Reported Meds & Active Scripts Active Reported Clonidine (Clonidine HCl) 0.3 Mg Tab 0.3 Mg PO BID Lisinopril 10 Mg Tab 10 Mg PO DAILY Atorvastatin (Atorvastatin Calcium) 40 Mg Tab 40 Mg PO HS Seroquel (Quetiapine Fumarate) 200 Mg Tab 200 Mg PO DAILY Flomax (Tamsulosin HCl) 0.4 Mg Cap 0.4 Mg PO HS Trazodone (Trazodone HCl) 100 Mg Tablet 100 Mg PO HS Active Ordered Medications Current Medications Medications (Trade) Dose Ordered Sig/Sukhjinder Route Start Time Stop Time Status Last Admin (Lipitor) 40 mg HS PO 09/27/17 21:00 (Catapres) 0.3 mg BID PO 09/27/17 09:00 (Prinivil) 10 mg DAILY PO 09/27/17 09:00 (SEROquel) 200 mg DAILY PO 09/27/17 09:00 (Flomax) 0.4 mg HS PO 09/27/17 21:00 (Desyrel) 100 mg HS PO 09/27/17 21:00 Family History States his mother had PR at age 61. States his father had PR at age 84. Social History Patient states he had been sober of alcohol for one year. He relapsed 2 days ago and had a half a pint of vodka. States he is a lifetime nonsmoker. Denies illicit drugs. 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 Physical Exam Vital Signs Vital Signs Date Time Temp Pulse Resp B/P (MAP) Pulse Ox O2 Delivery O2 Flow Rate FiO2 09/27/17 07:52 98.0 90 18 173/108 (129) 99 09/27/17 06:30 09/27/17 05:59 72 169/91 (117) 09/27/17 03:33 70 20 219/100 (139) 100 Room Air 09/27/17 03:27 Room Air 09/27/17 03:06 97.7 74 16 220/143 (168) 96 Room Air Physical Exam GENERAL: This is a well-nourished, well-developed patient, in no apparent distress. Patient speaks in clear complete sentences. Patient is pleasant. HEENT: Head is atraumatic and normocephalic. Neck is supple without lymphadenopathy and trachea is midline. No JVD or carotid bruits. CARDIOVASCULAR: Regular rate and rhythm without murmurs, gallops, or rubs. RESPIRATORY: Clear to auscultation. Breath sounds equal bilaterally. No wheezes , rales, or rhonchi. Chest wall is nontender. No use of accessory muscles. GASTROINTESTINAL: Abdomen is nontender, nondistended. Abdomen soft. No obvious pulsatile mass or bruit. No CVA tenderness. Strong femoral pulses bilaterally. Normal bowel sounds in all quadrants. MUSCULOSKELETAL: Patient is moving upper and lower extremities freely. No calf tenderness or edema, no Homans sign. Strong pulses in upper and lower extremities. NEUROLOGICAL: Patient is alert and oriented. Cranial nerves 2-12 are grossly intact. No focal deficits and speech is clear. SKIN: No rash and turgor is normal. Laboratory Laboratory Tests Test 09/27/17 03:35 09/27/17 06:30 Total Creatine Kinase 438 409 Creatine Kinase MB 4.0 3.4 Creatine Kinase MB % 0.9 0.8 Troponin I 0.05 0.05 Ethyl Alcohol Level LESS THAN 3 Course Initial EKG is sinus rhythm without significant ST segment depressions or elevations. Caprini VTE Risk Assessment Caprini VTE Risk Assessment: No/Low Risk (score <= 1) Caprini Risk Assessment Model Point Value = 1 Point Value = 2 Point Value = 3 Point Value = 5 Age 41-60 Minor surgery BMI > 25 kg/m2 Swollen legs Varicose veins or History of unexplained or recurrent spontaneous Oral contraceptives or hormone replacement Sepsis (< 1 month) Serious lung disease, including pneumonia (< 1 month) Abnormal pulmonary function Acute myocardial infarction Congestive heart failure (< 1 month) History of inflammatory bowel disease Medical patient at bed rest Age 61-74 Arthroscopic surgery Major open surgery (> 45 min) Laparoscopic surgery (> 45 min) Malignancy Confined to bed (> 72 hours) Immobilizing plaster cast Central venous access Age >= 75 History of VTE Family history of VTE Factor V Leiden Prothrombin [id number] Lupus anticoagulant Anticardiolipin antibodies Elevated serum homocysteine Heparin-induced thrombocytopenia Other congenital or acquired thrombophilia Stroke (< 1 month) Elective arthroplasty Hip, pelvis, or leg fracture Acute spinal cord injury (< 1 month) Prophylaxis Regimen Total Risk Factor Score Risk Level Prophylaxis Regimen 0-1 Low Early ambulation 2 Moderate Order ONE of the following: *Sequential Compression Device (SCD) *Heparin 5000 units SQ BID 3-4 Higher Order ONE of the following medications: *Heparin 5000 units SQ TID *Enoxaparin/Lovenox 40 mg SQ daily (WT < 150 kg, CrCl > 30 mL/min) *Enoxaparin/Lovenox 30 mg SQ daily (WT < 150 kg, CrCl > 10-29 mL/min) *Enoxaparin/Lovenox 30 mg SQ BID (WT < 150 kg, CrCl > 30 mL/min) AND/OR *Sequential Compression Device (SCD) 5 or more Highest Order ONE of the following medications: *Heparin 5000 units SQ TID (Preferred with Epidurals) *Enoxaparin/Lovenox 40 mg SQ daily (WT < 150 kg, CrCl > 30 mL/min) *Enoxaparin/Lovenox 30 mg SQ daily (WT < 150 kg, CrCl > 10-29 mL/min) *Enoxaparin/Lovenox 30 mg SQ BID (WT < 150 kg, CrCl > 30 mL/min) AND *Sequential Compression Device (SCD) Assessment and Plan Assessment and Plan * Chest pain: Patient has had several cardiac enzymes that have been negative over the last 2 days. His 2 most recent troponins have been normal at 3:00 this morning and 6:30 this morning. He had normal troponins just today in the day before. Patient will be seen by Dr. Serrato of cardiology in the chest pain center. We will get records of his cardiac catheterization. Likely no further cardiac testing will be needed. Patient will need to follow-up with a PCP and will need to make arranges follow-up with rehabilitation for alcohol abuse. Patient is well aware of alcohol anonymous. * Hypertension: Patient's blood pressure was quite high. But he states he ran out of medications 2 days ago. Patient will get refills. * Hyperlipidemia: Continue current medication. * Alcohol abuse: Patient went to follow-up with rehabilitation for his alcohol abuse. Patient is aware of alcohol anonymous. He also is aware [facility]. Patient is stable at this time. He is agreeable to this plan. Tariq Betts Sep 27, 2017 08:45
[2017-09-27] MEDS ORDERED: cloNIDine HCL 0.3 MG TAB PO SCH (09:00)
[2017-09-27] MEDS ORDERED: LISINOPRIL 10 MG TAB PO SCH (09:00)
[2017-09-27] MEDS ORDERED: QUEtiapine FUMARATE 200 MG TAB PO SCH (09:00)
[2017-09-27 09:09] VITALS: PULSE 86
--- NOTE | 2017-09-27 09:50 | PD.CARD.PN ---
Subjective Subjective Remarks Very complex patient admitted to [facility] because he complained of some chest pain on the right side after three previous visits to the ED in less than 48 hours. He is on probation in [facility] for vehicle theft, was in a program here for alcoholism and kicked out because he became intoxicated. He has long history of alcoholism (since 20) and schizophrenia. Has exhausted family support. Expressed suicidal ideation but was evaluated and screened by psych screener already and cleared. Apparently sent up to this area with the understanding that there was more care available here for him than in [facility]. His current physical complaints are anxiety, feeling he is SOB, fingers feel numb and tingly , and he is tearful and shaking for fear of being back on the street alone. He apparently was on the street for about a year previously and is terrified of being back there again. He wants to stay in the hospital. He has been evaluated for cardiac issues previously and had a cath 2 mo ago and was told it was negative. We are trying to obtain copies to confirm. MERLIN has spent considerable time with his evaluation already and we have discussed extensively and i am in agreement with his evaluation. Objective Medications Current Medications Medications (Trade) Dose Ordered Sig/Sukhjinder Route Start Time Stop Time Status Last Admin (Lipitor) 40 mg HS PO 09/27/17 21:00 (Catapres) 0.3 mg BID PO 09/27/17 09:00 09/27/17 09:00 (Prinivil) 10 mg DAILY PO 09/27/17 09:00 09/27/17 09:00 (SEROquel) 200 mg DAILY PO 09/27/17 09:00 09/27/17 09:01 (Flomax) 0.4 mg HS PO 09/27/17 21:00 (Desyrel) 100 mg HS PO 09/27/17 21:00 Vital Signs / I&O Vital Signs Date Time Temp Pulse Resp B/P (MAP) Pulse Ox O2 Delivery O2 Flow Rate FiO2 09/27/17 09:09 86 09/27/17 07:52 98.0 90 18 173/108 (129) 99 09/27/17 06:30 09/27/17 05:59 72 169/91 (117) 09/27/17 03:33 70 20 219/100 (139) 100 Room Air 09/27/17 03:27 Room Air 09/27/17 03:06 97.7 74 16 220/143 (168) 96 Room Air Physical Exam GENERAL: Slightly obese, tremulous crying SKIN: Warm and dry. HEAD: Atraumatic. Normocephalic. Close cut hair. EYES: Pupils equal and round. No scleral icterus. No injection or drainage. EOM intact ENT: No nasal bleeding or discharge. Mucous membranes pink and moist. NECK: Trachea midline. No JVD. No bruit CARDIOVASCULAR: Regular rate and rhythm. RESPIRATORY: No accessory muscle use. Clear to auscultation. Breath sounds equal bilaterally. GASTROINTESTINAL: Abdomen soft, non-tender, nondistended. Hepatic and splenic margins not palpable. MUSCULOSKELETAL: Extremities without clubbing, cyanosis, or edema. No obvious deformities. Recent injury to R lesser toe. NEUROLOGICAL: Awake and alert. No obvious cranial nerve deficits. Motor grossly within normal limits. Five out of 5 muscle strength in the arms and legs. Normal speech. PSYCHIATRIC: Anxious, oriented and memory good. Depressed and expresses some suicidal thoughts but has already been cleared by Psych. Laboratory Laboratory Tests Test 09/27/17 03:35 09/27/17 06:30 Total Creatine Kinase 438 U/L 409 U/L Creatine Kinase MB 4.0 NG/ML 3.4 NG/ML Creatine Kinase MB % 0.9 % 0.8 % Troponin I 0.05 NG/ML 0.05 NG/ML Ethyl Alcohol Level LESS THAN 3 MG/DL Imaging CT brain CXR both clear with no issues Assessment and Plan Problem List: (1) Chest pain ICD Codes: R07.9 - Chest pain, unspecified Status: Acute Plan: He has ruled out with serial enzymes and EKG's and had a CATH about 2 months ago which was reported as negative so further testing at this point would not be warranted. Clearly he will return to the ED if he has continuing issues. His real problem is the need for social support and we will attempt to assist him in seeking this if anything is available. (2) Suicidal ideation ICD Codes: R45.851 - Suicidal ideations Status: Acute Plan: Has already been cleared by psych screener but could decompensate further if he can't find any additional social or psychiatric help after discharge. We will have SS see and evaluate for possible assistance in this area. I have also talked to him about seeking help with his rastafarian denomination (Roman Catholic) and also asked ED staff to assist him with contacting his daughter in [place]. Problem Qualifiers (1) Chest pain: Qualified Codes: R07.9 - Chest pain, unspecified Ky Serrato MD Sep 27, 2017 09:50
--- NOTE | 2017-09-27 10:25 | EKG ---
Date Performed: 09/27/2017 Time Performed: 07:03:35 PTAGE: 57 years EKG: Sinus rhythm POSSIBLE LATERAL MYOCARDIAL INFARCTION ABNORMAL ECG PREVIOUS TRACING : 09/26/2017 15.47 DOCTOR: Kvng Gibson Interpretating Date/Time 09/27/2017 10:23:15
--- NOTE | 2017-09-27 10:26 | EKG ---
Date Performed: 09/27/2017 Time Performed: 03:26:13 PTAGE: 57 years EKG: Sinus rhythm WITH FIRST DEGREE AV BLOCK WITH OCCASIONAL VENTRICULAR PREMATURE COMPLEXES ABNORMAL ECG NO PREVIOUS TRACING DOCTOR: Kvng Gibson Interpretating Date/Time 09/27/2017 10:24:38
--- NOTE | 2017-09-27 10:36 | HHI.DCPOC ---
Discharge Care Plan Diagnosis: (1) Chest pain (2) Hypertension Goals to Promote Your Health * To prevent worsening of your condition and complications * To maintain your health at the optimal level Directions to Meet Your Goals Take your medications as prescribed Follow your dietary instruction Follow activity as directed Keep your appointments as scheduled Take your immunizations and boosters as scheduled If your symptoms worsen call your PCP, if no PCP go to Urgent Care Center or Emergency Room Smoking is Dangerous to Your Health. Avoid second hand smoke Call the 24-hour hour crisis hotline for domestic abuse at Tariq Betts Sep 27, 2017 10:35
[2017-09-27] MEDS ORDERED: traZODone HCL 100 MG TAB PO SCH (21:00)
[2017-09-27] MEDS ORDERED: ATORVASTATIN 40 MG TAB PO SCH (21:00)
[2017-09-27] MEDS ORDERED: TAMSULOSIN HCL 0.4 MG CAP PO SCH (21:00)
== END 2017-09-27 11:22 | disposition home or self-care (01) ==
LOC: NEPE 03:05 → NEDA 04:47 → NEPFCDU 06:44
PROVIDERS: ADMIT Internal Medicine Cardiovascular Disease; ATTEND Internal Medicine Cardiovascular Disease
DX: R07.89 Other chest pain (principal); I44.0 Atrioventricular block, first degree; R94.31 Abnormal electrocardiogram [ECG] [EKG]; F10.229 Alcohol dependence with intoxication, unspecified; Y90.7 Blood alcohol level of 200-239 mg/100 ml; R45.851 Suicidal ideations; R00.2 Palpitations; I25.10 Atherosclerotic heart disease of native coronary artery without angina pectoris; I10 Essential (primary) hypertension; E78.00 Pure hypercholesterolemia, unspecified; F20.9 Schizophrenia, unspecified; F32.9 Major depressive disorder, single episode, unspecified; F41.9 Anxiety disorder, unspecified; Z79.899 Other long term (current) drug therapy
CPT/HCPCS: 80307; 82550; 82552; 84484; 93005; 96374; 99285; G0378; J0360

== ENCOUNTER 2017-09-27 14:36 | Emergency (ER) | payer SELFPAY ==
[2017-09-27 14:41] VITALS: BP 119/70; PULSE 76; RESP 17; TEMP 98.7; O2SAT 99
--- NOTE | 2017-09-27 15:00 | PD ---
HPI Chief Complaint: Psychiatric Symptoms Time Seen by Provider: 14:59 Travel History International Travel<30 days: No Contact w/Intl Traveler<30days: No Traveled to known affect area: No History of Present Illness HPI 57 yo M arrives for the fourth time in three days by ambulance. he reported to the director of home economics that he wanted information about [facility], a referral evidently. director of home economics reports the patient has no plan to harm himself or others. he reports hearing voices and reports that his seroquel and trazadone, despite compliance, are not working. he reports drinking alcohol yesterday. he reports prior housing in a [facility] however was expelled following an alcohol relapse. he denies drug abuse or alcohol abuse today. he reports he is currently homeless. prior records reveal the patient was seen and evaluated here for chest pain and the chest pain center where it was discovered he underwent cardiac cath just recently which was clean. psychiatry has seen and cleared the patient from a psychiatric perspective. PFSH Past Medical History Depression: Yes Cardiac Catheterization: Yes High Cholesterol: Yes Coronary Artery Disease: Yes Hypertension: Yes Schizophrenia: Yes Social History Alcohol Use: Yes Tobacco Use: No Substance Use: No Allergies-Medications (Allergen,Severity, Reaction): Coded Allergies: No Known Allergies (Unverified , 09/27/17) Reported Meds & Prescriptions Reported Meds & Active Scripts Active Reported Clonidine (Clonidine HCl) 0.3 Mg Tab 0.3 Mg PO BID Lisinopril 10 Mg Tab 10 Mg PO DAILY Atorvastatin (Atorvastatin Calcium) 40 Mg Tab 40 Mg PO HS Seroquel (Quetiapine Fumarate) 200 Mg Tab 200 Mg PO DAILY Flomax (Tamsulosin HCl) 0.4 Mg Cap 0.4 Mg PO HS Trazodone (Trazodone HCl) 100 Mg Tablet 100 Mg PO HS Review of Systems General / Constitutional: No: Fever, Chills Psychiatric: Positive: Depression, Suicidal Ideations (no plan to hurt himself) , No: Homicidal Ideation Physical Exam Narrative GENERAL: 57 yo M, NAD, speaking full sentences, reasonably cooperative SKIN: Warm and dry. HEAD: Normocephalic. EYES: No scleral icterus. No injection or drainage. NECK: Supple, trachea midline. No JVD or lymphadenopathy. CARDIOVASCULAR: Regular rate and rhythm without murmurs, gallops, or rubs. RESPIRATORY: Breath sounds equal bilaterally. No accessory muscle use. GASTROINTESTINAL: Abdomen soft, non-tender, nondistended. MUSCULOSKELETAL: No cyanosis, or edema. BACK: Nontender without obvious deformity. No CVA tenderness. PSYCH: Depressed mood. + SI no plan, no prior attempt, no access to firearms. no thoughts of harming others. compliance with seroquel and trazadone reported. denies drug/alcohol use today. Data Data Last Documented VS Vital Signs Date Time Temp Pulse Resp B/P (MAP) Pulse Ox O2 Delivery O2 Flow Rate FiO2 09/27/17 15:08 09/27/17 14:55 16 09/27/17 14:41 98.7 76 99 Room Air VS reviewed Vital Signs Date Time Temp Pulse Resp B/P (MAP) Pulse Ox O2 Delivery O2 Flow Rate FiO2 09/27/17 15:08 09/27/17 14:55 16 09/27/17 14:41 98.7 76 17 119/70 (86) 99 Room Air Orders Orders Ed Discharge Order (09/27/17 14:59) MDM Medical Decision Making Medical Screen Exam Complete: Yes Emergency Medical Condition: Yes Medical Record Reviewed: Yes Differential Diagnosis depression, suicidal ideation, homicidal ideation, psa, alcohlism, chest pain, acs Narrative Course this is an unfortunate case of a patient with psychiatric disease, who is homeless, who arrives with various complaints which in essence culminate in a desire to be kept in the hospital. he was provided with a referral packet to homeless shelters in the area. pt denies to me a plan to harm himself or a history of harming himself. he was amenable with plan at time of discussion. unfortunately we cannot help him with housing and his psychiatric and medical complaints have been sufficiently investigated here previously. Diagnosis Primary Impression: Depressed mood Additional Impression: Hallucinations Referrals: Psychiatrist 2 days Med/Other Pt SpecificInfo: No Change to Meds Disposition: 01 DISCHARGE HOME Condition: Stable Gino Weir MD Sep 27, 2017 15:00
== END 2017-09-27 15:12 | disposition home or self-care (01) ==
LOC: NEPK 14:36
DX: F32.9 Major depressive disorder, single episode, unspecified (principal); R44.3 Hallucinations, unspecified; E78.00 Pure hypercholesterolemia, unspecified; I25.10 Atherosclerotic heart disease of native coronary artery without angina pectoris; I10 Essential (primary) hypertension; F20.9 Schizophrenia, unspecified; Z59.0 Homelessness; Z79.899 Other long term (current) drug therapy
CPT/HCPCS: 99283

== ENCOUNTER 2017-09-27 20:29 | Emergency (ER) | payer OTHER ==
[2017-09-27 20:42] VITALS: BP 148/65; PULSE 85; RESP 16; TEMP 98.4; O2SAT 97
--- NOTE | 2017-09-27 20:50 | PD ---
HPI Chief Complaint: psychiatric evaluation Time Seen by Provider: 20:41 Travel History International Travel<30 days: No Contact w/Intl Traveler<30days: No History of Present Illness HPI Patient comes in to the emergency department under [place] act by police for reported suicidal ideations. This is patient's fourth visit in 3 days. Patient recently had a cardiac workup as well as evaluation by psych. Patient is homeless. When asked patient if he is just because he needs a place to sleep patient states "that as part of it". Patient states he continues to hear voices and feeling depressed. Patient denies anything making this better or worse. Denies any other complaints or concerns at this time. PFSH Past Medical History Depression: Yes Cardiac Catheterization: Yes High Cholesterol: Yes Coronary Artery Disease: Yes Hypertension: Yes Schizophrenia: Yes Social History Alcohol Use: Yes Tobacco Use: No Substance Use: No Allergies-Medications (Allergen,Severity, Reaction): Coded Allergies: No Known Allergies (Unverified , 09/27/17) Reported Meds & Prescriptions Reported Meds & Active Scripts Active Reported Clonidine (Clonidine HCl) 0.3 Mg Tab 0.3 Mg PO BID Lisinopril 10 Mg Tab 10 Mg PO DAILY Atorvastatin (Atorvastatin Calcium) 40 Mg Tab 40 Mg PO HS Seroquel (Quetiapine Fumarate) 200 Mg Tab 200 Mg PO DAILY Flomax (Tamsulosin HCl) 0.4 Mg Cap 0.4 Mg PO HS Trazodone (Trazodone HCl) 100 Mg Tablet 100 Mg PO HS Review of Systems Except as stated in HPI: all other systems reviewed are Neg Physical Exam Narrative GENERAL: Well-developed, overly nourished, in no acute distress, and non-ill appearing. SKIN: Focused skin assessment warm and dry. HEAD: Atraumatic. Normocephalic. EYES: Pupils equal and round. EOMI. No scleral icterus. No injection or drainage. ENT: No nasal bleeding or discharge. Mucous membranes pink and moist. NECK: Trachea midline. Supple. No nuclear rigidity. CARDIOVASCULAR: Regular rate and rhythm. No murmur appreciated. RESPIRATORY: No accessory muscle use. No respiratory distress. Clear to auscultation. Breath sounds equal bilaterally. MUSCULOSKELETAL: No obvious deformities. No clubbing. No cyanosis. No edema. Full range of motion. NEUROLOGICAL: Awake and alert. No obvious cranial nerve deficits. Motor grossly within normal limits. Normal speech. PSYCHIATRIC: Appropriate mood and affect. Data Data Last Documented VS Vital Signs Date Time Temp Pulse Resp B/P (MAP) Pulse Ox O2 Delivery O2 Flow Rate FiO2 09/27/17 20:53 97.7 77 18 144/91 (108) 98 Room Air MDM Medical Decision Making Medical Screen Exam Complete: Yes Emergency Medical Condition: No Differential Diagnosis Homicidal, suicidal, malingering, homeless, suicidal, Narrative Course Patient was seen and examined. Labs were reviewed from previous ER visits. No need for traditional labs at this time. Patient medically cleared for further treatment and evaluation by psych. Final disposition per psych. Diagnosis Primary Impression: Medical clearance for psychiatric admission Condition: Stable Lucio Zavala Sep 27, 2017 20:50
[2017-09-27 20:53] VITALS: BP 144/91; PULSE 77; RESP 18; TEMP 97.7; O2SAT 98
== END 2017-09-27 23:50 | disposition home or self-care (01) ==
LOC: NEPD 20:29 → NEPJ 23:50
DX: R45.851 Suicidal ideations (principal); F32.9 Major depressive disorder, single episode, unspecified; E78.00 Pure hypercholesterolemia, unspecified; I25.10 Atherosclerotic heart disease of native coronary artery without angina pectoris; I10 Essential (primary) hypertension; F20.9 Schizophrenia, unspecified; Z59.0 Homelessness; Z79.899 Other long term (current) drug therapy
CPT/HCPCS: 99283

== ENCOUNTER 2017-10-31 11:19 | Inpatient (IN) | payer SELFPAY ==
[~2017-10-31] VITALS: Ht 165.1 cm; Wt 109.4 kg
[2017-10-31 11:50] VITALS: BP 201/116; PULSE 70; RESP 18; TEMP 98.1; O2SAT 97
[2017-10-31] MEDS ORDERED: cloNIDine HCL 0.3 MG TAB PO ONE (13:15)
[2017-10-31] MEDS ORDERED: ACETAMINOPHEN 325 MG TAB PO PRN (13:15)
[2017-10-31] MEDS ORDERED: diphenhydrAMINE HCL 50 MG CAP - HS PRN PO (13:15)
[2017-10-31] MEDS ORDERED: diphenhydrAMINE HCL 50 MG CAP PO PRN (13:15)
[2017-10-31] MEDS ORDERED: diphenhydrAMINE HCL 50 MG/ML VIAL - HS PRN IM (13:15)
[2017-10-31] MEDS ORDERED: ALUMINUM/MAGNESIUM/SIMETH 30 ML CUP PO PRN (13:15)
[2017-10-31] MEDS ORDERED: MAGNESIUM HYDROXIDE SUSP 30 ML CUP PO PRN (13:15)
[2017-10-31] MEDS ORDERED: diphenhydrAMINE HCL 50 MG/ML VIAL IM PRN (13:15)
[2017-10-31 14:35] VITALS: BP 159/100; PULSE 72; RESP 16; TEMP 97.5
[2017-10-31] MEDS ORDERED: guaiFENesin/DEXTROMETHORPHAN 200 MG/20 MG/10 ML CUP PO PRN (15:30)
--- NOTE | 2017-10-31 15:48 | PD.CONS ---
HPI Service [facility] Hospital[facility] Consult Requested By Dr. Galdamez Reason for Consult Management of Medical Issues Primary Care Physician No Primary Care Physician Diagnoses: History of Present Illness Written by Shelia Rosales, acting as scribe for Dr. Carrero on 10/31/17 at 15: 34. 57-year-old male with history of hypertension, hyperlipidemia, CAD, BPH, anxiety , depression, alcohol use, presents from [facility] under [place] Act, admitted to inpatient psychiatry unit for depression with suicidal ideations. Hospitalist consulted for medical management. The patient reports recently he has had a productive cough with some associated diffuse pleuritic chest pains. Denies any significant fevers/chills or shortness of breath. He states he was recently diagnosed with acute bronchitis however has not been able to fill prescriptions. He also reports he is been out of his antihypertensive medications. He admits to feeling depressed with suicidal ideations. He also reports he has been hearing voices. He denies any other medical complaints including no headache, lightheadedness, nausea/vomiting, abdominal pain, or urinary complaints. Review of Systems Except as stated in HPI: all other systems reviewed are Neg Past Family Social History Allergies: Coded Allergies: No Known Allergies (Unverified , 09/27/17) Past Medical History Hypertension Hyperlipidemia CAD BPH Anxiety Depression Past Surgical History Cardiac catheterization Reported Medications Clonidine (Clonidine HCl) 0.3 Mg Tab 0.3 Mg PO BID Lisinopril 10 Mg Tab 10 Mg PO DAILY Atorvastatin (Atorvastatin Calcium) 40 Mg Tab 40 Mg PO HS Seroquel (Quetiapine Fumarate) 200 Mg Tab 200 Mg PO DAILY Flomax (Tamsulosin HCl) 0.4 Mg Cap 0.4 Mg PO HS Trazodone (Trazodone HCl) 100 Mg Tablet 100 Mg PO HS Active Ordered Medications Current Medications Medications (Trade) Dose Ordered Sig/Sukhjinder Route Start Time Stop Time Status Last Admin (Atarax) 50 mg Q6H PRN PO 10/31/17 13:15 (Benadryl) 50 mg Q6H PRN PO 10/31/17 13:15 (Benadryl Inj) 50 mg Q6H PRN IM 10/31/17 13:15 (Benadryl) 50 mg HS PRN PO 10/31/17 13:15 (Benadryl Inj) 50 mg HS PRN IM 10/31/17 13:15 (Tylenol) 650 mg Q4H PRN PO 10/31/17 13:15 (Milk Of Magnesia Liq) 30 ml DAILY PRN PO 10/31/17 13:15 (Mag-Al Plus Susp Liq) 30 ml Q6H PRN PO 10/31/17 13:15 (Habitrol 21 Mg Patch.24 Hr) 1 patch DAILY T-DERMAL 11/01/17 09:00 Miscellaneous Information 1 HS T-DERMAL 10/31/17 21:00 (Zithromax) 500 mg DAILY PO 10/31/17 16:00 11/05/17 15:59 (Robitussin Dm 200-20 Mg/10 ml Liq) 10 ml Q4H PRN PO 10/31/17 15:30 (Lipitor) 40 mg HS PO 10/31/17 21:00 (Catapres) 0.3 mg BID PO 10/31/17 21:00 (Prinivil) 10 mg DAILY PO 10/31/17 16:00 (Flomax) 0.4 mg HS PO 10/31/17 21:00 Family History Both parents with heart disease, mother with [place] at age 61, father with [place] at age 84 Social History Lifelong nonsmoker Prior heavy alcohol use, now occasional alcohol use, denies any recent Denies any illicit drug use Physical Exam Vital Signs Vital Signs Date Time Temp Pulse Resp B/P (MAP) Pulse Ox O2 Delivery O2 Flow Rate FiO2 10/31/17 14:35 97.5 72 16 159/100 (119) 10/31/17 11:50 98.1 70 18 201/116 (144) 97 Physical Exam GENERAL: Well-nourished, well-developed middle-aged male patient in [facility]. SKIN: Warm and dry. No rash. HEAD: Normocephalic. Atraumatic. EYES: Pupils equal and round. No scleral icterus. No injection or drainage. ENT: No nasal bleeding or discharge. Mucous membranes pink and moist. NECK: Supple. Trachea midline. CARDIOVASCULAR: Regular rate and rhythm. S1, S2 noted. No murmur appreciated. RESPIRATORY: No accessory muscle use. Clear to auscultation. Breath sounds equal bilaterally. GASTROINTESTINAL: Abdomen soft, non-tender, nondistended. Normoactive bowel sounds x4. MUSCULOSKELETAL: No obvious deformities. Extremities without clubbing, cyanosis , or edema. NEUROLOGICAL: Awake and alert. No obvious cranial nerve deficits. Motor grossly within normal limits. Moves all extremities spontaneously. Normal speech. PSYCHIATRIC: Depressed mood; insight and judgment normal. Laboratory None. Imaging None. Assessment and Plan Problem List: (1) Hypertension ICD Code: I10 - Essential (primary) hypertension (2) Acute bronchitis ICD Code: J20.9 - Acute bronchitis, unspecified (3) HLD (hyperlipidemia) ICD Code: E78.5 - Hyperlipidemia, unspecified Assessment and Plan 57-year-old male with history of hypertension, hyperlipidemia, CAD, BPH, anxiety , depression, alcohol use, presents from [facility] under [place], admitted to inpatient psychiatry unit for depression with suicidal ideations. Hospitalist consulted for medical management. Depression/suicidal ideations: acute on chronic -continue management per psychiatry Acute Bronchitis: recently diagnosed however patient has not been able to fill prescriptions -start on Azithromycin 500mg qd x5days -Robitussin prn cough -monitor for improvement Hypertensive Urgency secondary to Accelerated Hypertension: BP 201/116 upon arrival. S/p clonidine 0.3mg x1 with improvement, BP 159/100. -Continue patient's clonidine 0.3mg bid and lisinopril 10mg daily -Continue to monitor BP, adjust antihypertensives as needed Hyperlipidemia: chronic -Continue patient's statin BPH: chronic -continue patient's flomax DVT Prophylaxis: patient is ambulatory Code Status Full Code Discussed Condition With Patient Shelia Rosales PA-C Oct 31, 2017 3:48 pm
[2017-10-31] MEDS: AZITHROMYCIN 250 MG TAB PO SCH (16:00)
[2017-10-31] MEDS: LISINOPRIL 10 MG TAB PO SCH (16:00)
[2017-10-31] MEDS: TAMSULOSIN HCL 0.4 MG CAP PO SCH (21:00)
[2017-10-31] MEDS: REMOVE OLD NICOTINE PATCH T-DERMAL SCH (21:00)
[2017-10-31] MEDS: cloNIDine HCL 0.3 MG TAB PO SCH (21:16)
[2017-10-31] MEDS: ATORVASTATIN 40 MG TAB PO SCH (21:16)
[2017-10-31] MEDS: hydrOXYzine HCL 50 MG TAB PO PRN (22:00)
[2017-11-01 05:51] VITALS: BP 132/82; PULSE 59; RESP 18; TEMP 97.9; O2SAT 95
[2017-11-01 08:23] LABS: BICARBONATE 28.2 MEQ/L (21.0-32.0); BLOOD UREA NITROGEN 22 MG/DL (7-18); CALCIUM 8.6 MG/DL (8.5-10.1); CHLORIDE 103 MEQ/L (98-107); CREATININE 1.08 MG/DL (0.60-1.30); GLOMERULAR FILTRATION RATE 71 ML/MIN (>89); GLUCOSE,RANDOM 99 MG/DL (74-106); SODIUM (NA) 137 MEQ/L (136-145)
[2017-11-01 08:26] LABS: CHOLESTEROL 132 MG/DL (120-200); CHOLESTEROL/ HDL RATIO 2.48 RATIO; HDL CHOLESTEROL 53.2 MG/DL (40.0-60.0); LDL CHOLESTEROL 62 MG/DL (0-99); TRIGLYCERIDES 82 MG/DL (42-150)
[2017-11-01] MEDS: NICOTINE 21 MG/24 HR PATCH T-DERMAL SCH (09:07)
[2017-11-01] MEDS: LISINOPRIL 10 MG TAB PO SCH (09:07)
[2017-11-01] MEDS: cloNIDine HCL 0.3 MG TAB PO SCH ×2 (09:07→20:30)
[2017-11-01] MEDS: AZITHROMYCIN 250 MG TAB PO SCH (09:07)
[2017-11-01] MEDS ORDERED: BENZTROPINE MESYLATE 1 MG TAB PO PRN (10:00)
[2017-11-01] MEDS ORDERED: BENZTROPINE MESYLATE 2 MG/2 ML VIAL IM PRN (10:00)
[2017-11-01] MEDS: THIAMINE HCL 100 MG TAB PO SCH (10:15)
[2017-11-01] MEDS: FOLIC ACID 1 MG TAB PO SCH (10:15)
--- NOTE | 2017-11-01 10:37 | MH ---
cc: BEBETOTIFFANI DATE OF ADMISSION 10/31/2017 ADMISSION DIAGNOSES 1. Other psychotic disorder, F28. Rule out malingering for intermediate and also possibly to bolster a disability application. LEGAL STATUS The patient is presently capacitated to consent for admission and for medication/treatment voluntary status. CHIEF COMPLAINT "I hear noises talking." HISTORY OF PRESENT ILLNESS Mr. Springer is a 57-year-old male with a reported history of depression and schizophrenia who presents in transfer from [facility] under a [place] Act. Documentation from outside hospital reviewed. It appears that the patient presented there initially with complaints of chest pain. At some point, the patient verbalized suicidal ideation and was placed under the [place] Act. Reviewing our electronic medical record, it appears that the patient has been seen in the past by psychiatric nurse practitioner Blaine in the ED who suspected that the patient was struggling with alcohol use issues and that was what prompted his presentation to the ER at that time. Patient seen and examined. Chart reviewed. Case discussed with nursing staff. On my examination today, the patient relates that he came up from [facility] about a month ago and has been residing in sober living. The patient does admit to recent relapse to alcohol use and so his placement in sober living has been jeopardized. He says that for several years he has been experiencing depression with "low self-esteem"." He describes some worthlessness and anhedonia. He describes vague suicidal ideation and when pressed says that he might try to step in front of a train. He denies any urge to hurt himself on the unit. He reports feeling anxious "all the time about everything." He reports command auditory hallucinations to hurt himself every day, most of the day, although he cannot describe these voices in detail with regards to sex, number, location, etc. No other hallucinatory material. No delusional material elicited. The remainder of the psychiatric ROS is negative. The patient complains of some constipation but has no other physical complaints at this time. PAST PSYCHIATRIC HISTORY The patient reports a history of depression and schizophrenia. He reports that he has been prescribed Seroquel, trazodone and Prozac in the past. He says that the Seroquel was dosed at 200 mg at bedtime and caused unacceptable weight gain. He does not feel like Prozac or trazodone have helped much with his mood. He says that he does not have a psychiatrist in this area. He was recently admitted to [facility] about two weeks ago. He reports one prior suicide attempt about six years ago when he allegedly tried to step in front of a train. FAMILY HISTORY The patient reports that his younger sister has a history of mental disorder and has attempted suicide in the past. CHEMICAL DEPENDENCY HISTORY The patient reports that he had been sober from alcohol for 11 years before relapsing a couple of days ago. SOCIAL HISTORY The patient reports that he had been residing in a sober living in this area. Prior to that, he had been living in [place]. He is high school educated. He is applying for disability. He is . He has a son who is and a daughter who is still living. He denies any history. Denies any access to guns or firearms. He is on probation related to car theft, and this is reported to be ongoing for the next year or so. He is [employer]. PAST MEDICAL HISTORY Includes a history of hypertension. See EMR. MEDICATIONS The patient is unsure of medication list. Besides psychotropics, the hospitalist has placed the patient on: 1. Lipitor 40 mg at bedtime. 2. Clonidine 0.3 mg twice daily. 3. Tamsulosin 0.4 mg at bedtime. 4. Lisinopril 10 mg daily. 5. Azithromycin 500 mg daily. ALLERGIES No known allergies. REVIEW OF SYSTEMS Except as noted in HPI, this is negative. PHYSICAL EXAM Temperature is 97.9, pulse 59, respirations 18, blood pressure 132/82, pulse oximetry 95% on room air. Physical examination was completed by hospitalist assessment consultant. On my examination today, the patient appears to be in no acute physical distress. No motor abnormalities noted. LABORATORIES REVIEWED Laboratories from outside hospital reviewed. CBC reveals mild leukocytosis with a white blood cell count of 12.4. Also reveals mild normocytic anemia with a hemoglobin of 13. CMP is unremarkable. Urine toxicology and alcohol level were both negative at outside hospital. MENTAL STATUS EXAM The patient is in hospital attire. He is fairly well-groomed and certainly maintaining basic hygiene. He is awake and alert and oriented x4. No evidence of delirium. No motor abnormalities noted. No signs of withdrawal noted. Speech is within normal limits for rate, tone and volume. Language and fund of knowledge average. Focus and concentration intact. Memory grossly intact on clinical exam. Mood is dysphoric and affect is restricted and consistent with stated mood. Thought process linear. No loosening of associations. No delusional material elicited. The patient reports command auditory hallucinations to self injure, but does not appear at all internally stimulated. No other hallucinatory material reported. He endorses vague suicidal ideation with urge to walk in front of a train, but denies any urge to hurt himself on the inpatient unit. Denies homicidal ideation. Insight and judgment are fair at best. ASSESSMENT/PLAN This is a 57-year-old male with psychiatric history as detailed above who presents in transfer from outside hospital under a [place] Act. On my examination today, the patient reports command auditory hallucinations to self injure with associated suicidal ideation. As presented to me, these symptoms seem likely to be malingering and I suspect that the secondary gain at play here is either intermediate as the patient has recently relapsed to alcohol after extended sobriety and so is not welcome at his sober living or else he is trying to bolster a disability application. He does report psychotropic medication treatment in the past with Seroquel, although the dose was as reported was likely insufficient to provide antipsychotic effect. He did not think that his antidepressants were helping with his dysphoria. I have discussed with the patient in great detail the risks, benefits and alternatives of psychotropic medication options for management of his reported symptoms. After a discussion of several different options, we settled on a trial of Abilify. I will plan to admit the patient to the inpatient psychiatric unit for observation and medication adjustment. Admit inpatient. Voluntary status. Hospitalist was consulted by the admitting physician, input appreciated. Continue general medical medications as ordered by the hospitalist. Check a TSH, CBC to follow up on anemia and leukocytosis as well as the BMP, hemoglobin A1c and lipid panel ordered by the admitting physician. Check an EKG for QTc. As long as the intervals are all right, we will plan to initiate Abilify at a dose of 10 mg daily for the management of the patient's reported psychotic symptoms and for mood stabilization. Atarax as needed for anxiety. Cogentin as needed for EPS, Benadryl as needed for sleep. Vitals every shift. Counselor to see. Disposition planning. Estimated length of stay: 3-5 days. Tiffani Colvin DC/RADHA /9:38 AM /9:56 AM CELESTINO
[2017-11-01 10:41] LABS: AUTOMATED NEUTROPHIL # 8.9 TH/MM3 (1.8-7.7); BASOPHIL % 0.4 % (0.0-2.0); EOSINOPHIL # 0.1 TH/MM3 (0-0.4); EOSINOPHIL % 1.2 % (0.0-4.0); HEMATOCRIT 39.3 % (39.0-51.0); HEMOGLOBIN 12.9 GM/DL (13.0-17.0); LYMPH % 7.7 % (9.0-44.0); LYMPHOCYTE # 0.9 TH/MM3 (1.0-4.8); MEAN CELL VOLUME 93.6 FL (80.0-100.0); MEAN CORPUSCULAR HEMOGLOBIN 30.7 PG (27.0-34.0); MEAN CORPUSCULAR HGB CONC 32.8 % (32.0-36.0); MEAN PLATELET VOLUME 9.8 FL (7.0-11.0); MONO % 12.9 % (0.0-8.0); MONOCYTE # 1.5 TH/MM3 (0-0.9); NEUT % 77.8 % (16.0-70.0); PLATELET COUNT 131 TH/MM3 (150-450); RED CELL DISTRIBUTION WIDTH 14.4 % (11.6-17.2); WHITE BLOOD COUNT 11.5 TH/MM3 (4.0-11.0)
[2017-11-01] MEDS: ARIPiprazole 5 MG TAB PO SCH (13:45)
[2017-11-01 16:46] LABS: HEMOGLOBIN A1C 4.9 % (4.3-6.0)
[2017-11-01] MEDS: hydrOXYzine HCL 50 MG TAB PO PRN (16:57)
[2017-11-01 17:26] VITALS: BP 144/69; PULSE 55; RESP 18; TEMP 98.4; O2SAT 96
[2017-11-01] MEDS: TAMSULOSIN HCL 0.4 MG CAP PO SCH (20:30)
[2017-11-01] MEDS: ATORVASTATIN 40 MG TAB PO SCH (20:30)
[2017-11-01] MEDS: REMOVE OLD NICOTINE PATCH T-DERMAL SCH (20:32)
[2017-11-02 06:00] VITALS: BP 163/97; PULSE 69; RESP 18; TEMP 97.8; O2SAT 97
[2017-11-02] MEDS: NICOTINE 21 MG/24 HR PATCH T-DERMAL SCH (09:00)
[2017-11-02] MEDS: FOLIC ACID 1 MG TAB PO SCH (09:01)
[2017-11-02] MEDS: LISINOPRIL 10 MG TAB PO SCH (09:01)
[2017-11-02] MEDS: ARIPiprazole 5 MG TAB PO SCH (09:01)
[2017-11-02] MEDS: THIAMINE HCL 100 MG TAB PO SCH (09:01)
[2017-11-02] MEDS: cloNIDine HCL 0.3 MG TAB PO SCH (09:01)
[2017-11-02] MEDS: AZITHROMYCIN 250 MG TAB PO SCH (09:01)
[2017-11-02] MEDS ORDERED: AZIT250T3 PO (10:46)
[2017-11-02] MEDS ORDERED: ARIP1TAB11 PO (10:50)
--- NOTE | 2017-11-02 10:50 | HHI.DS ---
Psychiatry Discharge Summary Inpatient Psychiatric care?: Yes Advance Directive: No Mental Health AdvanceDirective: No Health Care Proxy: No Admission Admission Date Oct 31, 2017 at 11:43 Admission Diagnosis: (1) Other psychotic disorder not due to a substance or known physiological condition ICD Code: F28 - Other psychotic disorder not due to a substance or known physiological condition Brief History Mr. Springer is a 57-year-old male with a reported history of depression and schizophrenia who presents in transfer from [facility] under a [place]a Act. Documentation from outside hospital reviewed. It appears that the patient presented there initially with complaints of chest pain. At some point, the patient verbalized suicidal ideation and was placed under the [place] Act. Reviewing our electronic medical record, it appears that the patient has been seen in the past by psychiatric nurse practitioner Blaine in the ED who suspected that the patient was struggling with alcohol use issues and that was what prompted his presentation to the ER at that time. Patient seen and examined. Chart reviewed. Case discussed with nursing staff. On my examination today, the patient relates that he came up from [facility] about a month ago and has been residing in sober living. The patient does admit to recent relapse to alcohol use and so his placement in sober living has been jeopardized. He says that for several years he has been experiencing depression with "low self-esteem"." He describes some worthlessness and anhedonia. He describes vague suicidal ideation and when pressed says that he might try to step in front of a train. He denies any urge to hurt himself on the unit. He reports feeling anxious "all the time about everything." He reports command auditory hallucinations to hurt himself every day, most of the day, although he cannot describe these voices in detail with regards to sex, number, location, etc. No other hallucinatory material. No delusional material elicited. The remainder of the psychiatric ROS is negative. The patient complains of some constipation but has no other physical complaints at this time. Tobacco Use In Past 30 Days: No Tobacco Past 30 Days Alcohol Use: Monthly or Less Hospital Course Patient was admitted to a locked, inpatient psychiatric unit. A general medical consultation was obtained and the patient was medically cleared prior to discharge. Appropriate precautions were in place throughout patient's hospital stay. Patient was seen and examined on the unit by psychiatry and also visited by counselor. Psychotropic medications were adjusted. The patient tolerated psychotropics well without side effects. There was no evidence of any suicidality or homicidality on the inpatient unit. On the day of discharge: Patient seen and examined with nurse. Chart reviewed. Case discussed in treatment team with counselor and occupational therapist. Per nursing staff, the patient is very entitled and expects the hospital to find him housing. On my examination today, the patient initially says that he is experiencing ongoing command auditory hallucinations. However, following a discussion somewhat later about the difficulties in finding housing for the patient, he promptly changes his narrative and says that he is not experiencing CAH. He says that he has not experienced any hallucinatory material since last night. He is now requesting discharge from the inpatient unit today. He denies any suicidal or homicidal ideation, intent or plan on direct questioning and contracts for safety. Mood is fair, and I can elicit no depressive or hypomanic/manic symptoms. He denies any audiovisual hallucinations at this time as I said, and he does not appear at all internally stimulated. No delusional material elicited. There is no evidence of impairment in reality construction. He denies side effects from medications. He has no physical complaints. Looking at the totality of the case, it seems likely that he was malingering his psychiatric symptoms for usp. Suicide and violence risk assessment on day of discharge both suggest lower imminent risk, and the patient 's level of function is adequate for outpatient care. The patient is voluntary , requesting discharge from the hospital today, and I have no basis to retain him over his objection at this time as he does not meet criteria for involuntary psychiatric hospitalization presently. He will be discharged today with psychiatric follow-up as arranged by counselor. Patient is also to follow- up with primary care. I have counseled the patient to return to the psychiatric emergency room for any concerning psychiatric symptoms as part of general safety plan. Results Blood Pressure 163 / 97 Vital Signs Date Time Temp Pulse Resp B/P (MAP) Pulse Ox O2 Delivery O2 Flow Rate FiO2 11/02/17 06:00 97.8 69 18 163/97 (119) 97 Laboratory Tests Test 11/01/17 07:20 White Blood Count 11.5 TH/MM3 (4.0-11.0) Red Blood Count 4.20 MIL/MM3 (4.50-5.90) Hemoglobin 12.9 GM/DL (13.0-17.0) Platelet Count 131 TH/MM3 (150-450) Neutrophils (%) (Auto) 77.8 % (16.0-70.0) Lymphocytes (%) (Auto) 7.7 % (9.0-44.0) Monocytes (%) (Auto) 12.9 % (0.0-8.0) Neutrophils # (Auto) 8.9 TH/MM3 (1.8-7.7) Lymphocytes # (Auto) 0.9 TH/MM3 (1.0-4.8) Monocytes # (Auto) 1.5 TH/MM3 (0-0.9) Blood Urea Nitrogen 22 MG/DL (7-18) Estimat Glomerular Filtration Rate 71 ML/MIN (>89) Laboratory Results Test 11/01/17 07:20 Cholesterol Level 132 MG/DL (120-200) HDL Cholesterol 53.2 MG/DL (40.0-60.0) Hemoglobin A1c 4.9 % (4.3-6.0) LDL Cholesterol 62 MG/DL (0-99) Triglycerides Level 82 MG/DL (42-150) Summary of Procedures None done Imaging None done Pending results at discharge: No Medications # of Antipsychotic meds at D/C: 1 Approp Antipsych med options 1 - Minimum of three failed multiple trials of monotherapy. 2 - Documented plan to taper to monotherapy due to previous use of multiple meds OR cross-taper in progress at D/C. 3 - Documentation of augmentation of Clozapine. 4 - Justification other than those listed in allowable values 1-3, document here : Discharge Discharge Date: Nov 02, 2017 Discharge Diagnosis: (1) Malingering Diagnosis: Principal (for usp) ICD Code: Z76.5 - Malingerer [conscious simulation] Status: Acute (2) Other psychotic disorder not due to a substance or known physiological condition Diagnosis: Secondary (resolved) ICD Code: F28 - Other psychotic disorder not due to a substance or known physiological condition Pt Condition on Discharge: Stable Discharge Disposition: Discharge Home Discharge Instructions Diet Instructions: As Tolerated, No Restrictions Activities you can perform: Weight Bearing as [place] Scheduled Appointment: as per counselor's notes New Orders: BASIC METABOLIC PROF - 1 Week CBC WITH DIFF - 1 Week New Medications: Aripiprazole (Aripiprazole) 5 Mg Tab 5 MG PO DAILY for Mental Health for 5 Days, #5 TAB 2 Refills Azithromycin (Azithromycin) 250 Mg Tab 500 MG PO DAILY for Bronchitis, #3 TAB Continued Medications: Atorvastatin (Atorvastatin) 40 Mg Tab 40 MG PO HS for Cholesterol Management, #30 TAB 0 Refills Clonidine (Clonidine) 0.3 Mg Tab 0.3 MG PO BID for Blood Pressure Management, #60 TAB 0 Refills Lisinopril (Lisinopril) 10 Mg Tab 10 MG PO DAILY, #30 TAB 0 Refills Tamsulosin (Flomax) 0.4 Mg Cap 0.4 MG PO HS for Manage Prostate Problems, #30 CAP 0 Refills Discontinued Medications: Quetiapine (Seroquel) 200 Mg Tab 200 MG PO DAILY, #30 TAB 0 Refills Trazodone (Trazodone) 100 Mg Tablet 100 MG PO HS for Control Depression, #30 TAB 0 Refills Discharge Time <= 30 minutes Mental Status Examination Appearance: Appropriate Consciousness: Alert Orientation: x4 Motor Activity: Normal gait, Other (no motoric abnormalities noted. No signs of withdrawal noted.) Speech: Unremarkable Language: Adequate Fund of Knowledge: Adequate Attention and Concentration: Adequate Memory: Unremarkable (grossly intact on clinical exam) Mood: Appropriate Affect: Appropriate Thought Process & Associations: Intact, Logical, Goal directed, Linear Thought Content: Appropriate Hallucination Type: None Delusion Type: None Suicidal Ideation: No Suicidal Plan: No Suicidal Intention: No Homicidal Ideation: No Homicidal Plan: No Homicidal Intention: No Insight: Fair Judgment: Adequate (fair) Discharge/Advance Care Plan Health Problems: (1) Malingering (2) Other psychotic disorder not due to a substance or known physiological condition Goals to promote your health * To prevent worsening of your condition and complications * To maintain your health at the optimal level Directions to meet your goals Take your medications as prescribed Follow your dietary instruction Follow activity as directed Keep your appointments as scheduled Take your immunizations and boosters as scheduled If your symptoms worsen call your PCP, if no PCP go to Urgent Care Center or Emergency Room For 24 questions related to your inpatient stay or results of tests pending at discharge, please contact Dr. Saqib Colvin at Smoking is Dangerous to Your Health. Avoid second hand smoking Saqib Colvin MD Nov 02, 2017 10:50
--- NOTE | 2017-11-02 14:21 | EKG ---
Date Performed: 11/01/2017 Time Performed: 12:47:12 PTAGE: 57 years EKG: SINUS BRADYCARDIA WITH FIRST DEGREE AV BLOCK PROBABLE LATERAL MYOCARDIAL INFARCTION , OF IN DETERMINATE AGE ABNORMAL ECG PREVIOUS TRACING : 09/27/2017 07.03 Since prior tracing, sinus rate is slower and first degree AV block is new. DOCTOR: Polo Torres Interpretating Date/Time 11/02/2017 14:20:37
== END 2017-11-02 12:50 | disposition home or self-care (01) | DRG 951 ==
LOC: H270 11:43 → H260 11-01 16:22
PROVIDERS: ADMIT Psychiatry & Neurology Psychiatry; ATTEND Psychiatry & Neurology Psychiatry
DX: Z76.5 Malingerer [conscious simulation] (principal); I10 Essential (primary) hypertension; F28 Other psychotic disorder not due to a substance or known physiological condition; I16.0 Hypertensive urgency; J20.9 Acute bronchitis, unspecified; E78.5 Hyperlipidemia, unspecified; N40.0 Benign prostatic hyperplasia without lower urinary tract symptoms; I25.10 Atherosclerotic heart disease of native coronary artery without angina pectoris; F41.9 Anxiety disorder, unspecified; K59.00 Constipation, unspecified; Z72.89 Other problems related to lifestyle
CPT/HCPCS: 80048; 80061; 83036; 84443; 85025; 93005

== ENCOUNTER 2017-11-04 17:35 | Emergency (ER) | payer SELFPAY ==
[~2017-11-04] VITALS: Ht 165.1 cm; Wt 105.0 kg
[~2017-11-04 17:35] MED LIST changes: +ARIP1TAB11 PO; +AZIT250T3 PO; -SERO200T PO; -TRAZ100T10 PO
[2017-11-04 17:38] VITALS: BP 198/108; PULSE 52; RESP 16; TEMP 97.7; O2SAT 97
[2017-11-04] MEDS ORDERED: LORA-474 PO (17:53)
--- NOTE | 2017-11-04 17:58 | PD ---
HPI Chief Complaint: Chest Pain Time Seen by Provider: 17:58 Travel History International Travel<30 days: No Contact w/Intl Traveler<30days: No Traveled to known affect area: No History of Present Illness HPI 57-year-old male came to the emergency room with history of chest pain and high blood pressure that he mentioned while he was in [facility]. [facility] has sent their notes and history and physical with him. It clearly says that patient has been in multiple facilities including [place] for various complaints. The core of his problem lies in the fact that he is homeless and an alcoholic. He claims to have history of schizophrenia and hence went to [facility] today. However during the questioning he started complaining of chest pain and they sent him to the emergency room via EMS. Patient was admitted for suicidal ideation in this facility not too long ago when he also complained of chest pain and was seen by the flame channeler Dr. Serrato. During that time as per his notes patient had a cardiac catheterization done 2 months ago that was clean. His concern for coronary artery disease was very low. Patient was ruled out with 3 serial enzymes for any ACS at that time. Patient has been noncompliant with any of his medications since he says he is homeless and does not have any money. He has prescriptions for medications but has not filled. [facility] Past Medical History Narrative Medical List of his past medical, surgical, social and family history is reviewed from the nursing note. Depression: Yes Cardiac Catheterization: Yes Cardiovascular Problems: Yes (HTN) High Cholesterol: Yes Coronary Artery Disease: Yes Headaches: No Hypertension: Yes Psychiatric: Yes (Reported history of treatment for Schizophrenia and Depression) Schizophrenia: Yes Social History Alcohol Use: Yes Tobacco Use: Yes Substance Use: Yes (REPORTS LAST DRINK WAS YESTERDAY) Allergies-Medications (Allergen,Severity, Reaction): Coded Allergies: No Known Allergies (Unverified , 11/04/17) Comments No known drug allergies. Reported Meds & Prescriptions Reported Meds & Active Scripts Active Aripiprazole 5 Mg Tab 5 Mg PO DAILY 5 Days Azithromycin 250 Mg Tab 500 Mg PO DAILY Reported Ativan (Lorazepam) 1 Mg Tab 1 Mg PO BID Clonidine (Clonidine HCl) 0.3 Mg Tab 0.3 Mg PO BID Lisinopril 10 Mg Tab 10 Mg PO DAILY Atorvastatin (Atorvastatin Calcium) 40 Mg Tab 40 Mg PO HS Flomax (Tamsulosin HCl) 0.4 Mg Cap 0.4 Mg PO HS Narrative Medication List of his home medications reviewed from the nursing note. Review of Systems Except as stated in HPI: all other systems reviewed are Neg Cardiovascular: Positive: Chest Pain or Discomfort Physical Exam Narrative GENERAL: Awake, alert, anxious SKIN: Focused skin assessment warm/dry. HEAD: Atraumatic. Normocephalic. EYES: Pupils equal and round. No scleral icterus. No injection or drainage. ENT: No nasal bleeding or discharge. Mucous membranes pink and moist. NECK: Trachea midline. No JVD. CARDIOVASCULAR: Regular rate and rhythm. No murmur appreciated. RESPIRATORY: No accessory muscle use. Clear to auscultation. Breath sounds equal bilaterally. GASTROINTESTINAL: Abdomen soft, non-tender, nondistended. Hepatic and splenic margins not palpable. MUSCULOSKELETAL: No obvious deformities. No clubbing. No cyanosis. No edema. NEUROLOGICAL: Awake and alert. No obvious cranial nerve deficits. Motor grossly within normal limits. Normal speech. PSYCHIATRIC: Appropriate mood and affect; insight and judgment normal. Data Data Last Documented VS Orders Orders Electrocardiogram (11/04/17 ) Basic Metabolic Panel (Bmp) (11/04/17 18:02) Ckmb (Isoenzyme) Profile (11/04/17 18:02) Complete Blood Count With Diff (11/04/17 18:02) Magnesium (Mg) (11/04/17 18:02) Prothrombin Time / Inr (Pt) (11/04/17 18:02) Act Partial Throm Time (Ptt) (11/04/17 18:02) Troponin I (11/04/17 18:02) Chest, Single Ap (11/04/17 18:02) Ecg Monitoring (11/04/17 18:02) Bilateral Bp Monitoring (11/04/17 18:02) Iv Access Insert/Monitor (11/04/17 18:02) Oximetry (11/04/17 18:02) Oxygen Administration (11/04/17 18:02) Sodium Chloride 0.9% Flush (Ns Flush) (11/04/17 18:15) Clonidine (Catapres) (11/04/17 18:15) Ed Discharge Order (11/04/17 19:11) Clonidine (Catapres) (11/04/17 20:30) Labs Laboratory Tests Test 11/04/17 18:20 White Blood Count 8.4 TH/MM3 Red Blood Count 4.46 MIL/MM3 Hemoglobin 14.3 GM/DL Hematocrit 41.2 % Mean Corpuscular Volume 92.5 FL Mean Corpuscular Hemoglobin 32.1 PG Mean Corpuscular Hemoglobin Concent 34.7 % Red Cell Distribution Width 14.3 % Platelet Count 177 TH/MM3 Mean Platelet Volume 9.1 FL Neutrophils (%) (Auto) 66.9 % Lymphocytes (%) (Auto) 17.5 % Monocytes (%) (Auto) 13.0 % Eosinophils (%) (Auto) 1.8 % Basophils (%) (Auto) 0.8 % Neutrophils # (Auto) 5.6 TH/MM3 Lymphocytes # (Auto) 1.5 TH/MM3 Monocytes # (Auto) 1.1 TH/MM3 Eosinophils # (Auto) 0.2 TH/MM3 Basophils # (Auto) 0.1 TH/MM3 CBC Comment DIFF FINAL Differential Comment Prothrombin Time 11.3 SEC Prothromb Time International Ratio 1.1 RATIO Activated Partial Thromboplast Time 31.3 SEC Blood Urea Nitrogen 27 MG/DL Creatinine 1.38 MG/DL Random Glucose 83 MG/DL Calcium Level 8.3 MG/DL Magnesium Level 2.0 MG/DL Sodium Level 137 MEQ/L Potassium Level 4.0 MEQ/L Chloride Level 102 MEQ/L Carbon Dioxide Level 30.0 MEQ/L Anion Gap 5 MEQ/L Estimat Glomerular Filtration Rate 53 ML/MIN Total Creatine Kinase 94 U/L Troponin I 0.03 NG/ML MDM Medical Decision Making Medical Screen Exam Complete: Yes Emergency Medical Condition: Yes Medical Record Reviewed: Yes Interpretation(s) Twelve-lead EKG was reviewed by me. Normal sinus rhythm, normal axis, poor R- wave progression, first-degree AV block, bradycardia, nonspecific ST-T wave changes. Heart rate of 55 bpm. Differential Diagnosis Hypertension, medication noncompliance, homeless Narrative Course 7:15 PM given the fact that patient had a cardiac catheterization that was clean 2 months ago no further workup besides negative troponin and EKG is required at this point. I'll discharge him at this point again and he needs to go back to [facility]. This has been explained to the patient. Do not see any point of giving him any further prescriptions since this patient has not been filling his prescriptions. Patient agrees. He was given 0.1 mg of clonidine in the emergency room and his blood pressure has been trending down. Procedures EKG Prior to Arrival: Yes Diagnosis Primary Impression: Hypertension Qualified Codes: I10 - Essential (primary) hypertension Additional Impressions: Noncompliance with medications Alcohol dependence Qualified Codes: F10.29 - Alcohol dependence with unspecified alcohol-induced disorder Atypical chest pain Homeless Additional Instructions: Please return to [facility] for further psychiatric treatment. Disposition: 01 DISCHARGE HOME Condition: Stable Marco Antonio Ugalde MD Nov 04, 2017 17:58
[2017-11-04 18:05] VITALS: BP_SYST 190; BP_SYST 200; BP_DIAS 102; BP_DIAS 98; PULSE 60; RESP 17; O2SAT 99
[2017-11-04] MEDS ORDERED: cloNIDine HCL 0.1 MG TAB PO ONE ×2 (18:15→20:30)
[2017-11-04] MEDS ORDERED: SODIUM CHLORIDE 0.9% FLUSH 10 ML FLUSH IVF PRN (18:15)
[2017-11-04 18:38] LABS: AUTOMATED NEUTROPHIL # 5.6 TH/MM3 (1.8-7.7); BASOPHIL # 0.1 TH/MM3 (0-0.2); BASOPHIL % 0.8 % (0.0-2.0); EOSINOPHIL # 0.2 TH/MM3 (0-0.4); EOSINOPHIL % 1.8 % (0.0-4.0); HEMATOCRIT 41.2 % (39.0-51.0); HEMOGLOBIN 14.3 GM/DL (13.0-17.0); LYMPH % 17.5 % (9.0-44.0); LYMPHOCYTE # 1.5 TH/MM3 (1.0-4.8); MEAN CELL VOLUME 92.5 FL (80.0-100.0); MEAN CORPUSCULAR HEMOGLOBIN 32.1 PG (27.0-34.0); MEAN CORPUSCULAR HGB CONC 34.7 % (32.0-36.0); MEAN PLATELET VOLUME 9.1 FL (7.0-11.0); MONOCYTE # 1.1 TH/MM3 (0-0.9); NEUT % 66.9 % (16.0-70.0); PLATELET COUNT 177 TH/MM3 (150-450); RED BLOOD COUNT 4.46 MIL/MM3 (4.50-5.90); RED CELL DISTRIBUTION WIDTH 14.3 % (11.6-17.2); WHITE BLOOD COUNT 8.4 TH/MM3 (4.0-11.0)
[2017-11-04 18:49] LABS: INTERNATIONAL NORMALIZED RATIO 1.1 RATIO; PROTHROMBIN TIME - PATIENT 11.3 SEC (9.8-11.6)
--- NOTE | 2017-11-04 18:55 | RADRPT ---
EXAM DATE/TIME: 11/04/2017 18:17 [place] COMPARISON: CHEST SINGLE AP, September 26, 2017, 15:18. INDICATIONS : Short of breath and chest pain for two weeks. MEDICAL HISTORY : Chronic obstructive pulmonary disease. SURGICAL HISTORY : None. ENCOUNTER: Initial ACUITY: 2 weeks PAIN SCORE: 6/10 LOCATION: Bilateral chest FINDINGS: The lungs are clear without infiltrate, nodule, or mass. There is no appreciable pleural effusion fo r technique. Heart and mediastinum are unremarkable. CONCLUSION: No acute cardiopulmonary disease. Anthony Elizabeth MD on November 04, 2017 at 18:53 Board Certified Radiologist. This report was verified electronically.
[2017-11-04 19:00] LABS: CALCIUM 8.3 MG/DL (8.5-10.1); CREATININE 1.38 MG/DL (0.60-1.30)
[2017-11-04 19:04] LABS: TROPONIN I 0.03 NG/ML (0.02-0.05)
[2017-11-04 19:08] VITALS: BP 176/113; PULSE 67; RESP 18; O2SAT 97
--- NOTE | 2017-11-04 21:50 | EKG ---
Date Performed: 11/04/2017 Time Performed: 17:55:14 PTAGE: 57 years EKG: SINUS BRADYCARDIA WITH FIRST DEGREE AV BLOCK ABNORMAL ECG No significant change from prior electrocardiogram. PREVIOUS TRACING : 11/01/2017 12.47 DOCTOR: Cheng Almodovar Interpretating Date/Time 11/04/2017 21:48:35
== END 2017-11-04 20:40 | disposition home or self-care (01) ==
LOC: NEPE 17:35
DX: I10 Essential (primary) hypertension (principal); F10.29 Alcohol dependence with unspecified alcohol-induced disorder; R07.89 Other chest pain; I44.0 Atrioventricular block, first degree; R00.1 Bradycardia, unspecified; F20.9 Schizophrenia, unspecified; F32.9 Major depressive disorder, single episode, unspecified; Z91.14 Patient's other noncompliance with medication regimen; Z59.0 Homelessness
CPT/HCPCS: 71010; 80048; 82550; 83735; 84484; 85025; 85610; 85730; 93005

== ENCOUNTER 2017-11-11 21:00 | Emergency (ER) | payer SELFPAY ==
[~2017-11-11] VITALS: Ht 170.2 cm; Wt 75.0 kg
[~2017-11-11 21:00] MED LIST changes: +LORA-474 PO
[2017-11-11 21:03] VITALS: BP 179/110; PULSE 59; RESP 16; TEMP 97.9; O2SAT 98
--- NOTE | 2017-11-11 21:20 | PD ---
HPI Chief Complaint: Psychiatric Symptoms Time Seen by Provider: 21:15 Travel History International Travel<30 days: No Contact w/Intl Traveler<30days: No Traveled to known affect area: No History of Present Illness HPI 57-year-old male presents to emergency department voluntarily for psychiatric evaluation. Patient has been having worsening suicidal thoughts. He does have history of schizophrenia. He also has hypertension. Patient reports no active plan at this time to me but states he has thought of "several ways to end his life." He reports no acute medical needs at this time. PFSH Past Medical History Anxiety: Yes Depression: Yes Cardiac Catheterization: Yes Cardiovascular Problems: Yes (HTN) High Cholesterol: Yes Coronary Artery Disease: Yes Diminished Hearing: No Headaches: No Hypertension: Yes Psychiatric: Yes (Reported history of treatment for Schizophrenia and Depression) Schizophrenia: Yes Social History Alcohol Use: Yes Tobacco Use: No (PT DENIES ) Substance Use: No Allergies-Medications (Allergen,Severity, Reaction): Coded Allergies: No Known Allergies (Unverified , 11/11/17) Reported Meds & Prescriptions Reported Meds & Active Scripts Active Aripiprazole 5 Mg Tab 5 Mg PO DAILY 5 Days Reported Clonidine (Clonidine HCl) 0.1 Mg Tab 0.1 Mg PO ONCE Clonidine (Clonidine HCl) 0.1 Mg Tab 0.1 Mg PO ONCE Vistaril (Hydroxyzine Pamoate) 50 Mg Cap 50 Mg PO ONCE Clonidine (Clonidine HCl) 0.1 Mg Tab 0.1 Mg PO ONCE Valsartan 40 Mg Tab 20 Mg PO BID Wellbutrin SR 12 HR (Bupropion HCl) 100 Mg Tab 100 Mg PO Q12HR Seroquel (Quetiapine Fumarate) 400 Mg Tab 400 Mg PO DAILY Trazodone (Trazodone HCl) 300 Mg Tab 200 Mg PO HS Ativan (Lorazepam) 1 Mg Tab 1 Mg PO BID Clonidine (Clonidine HCl) 0.3 Mg Tab 0.3 Mg PO BID Lisinopril 10 Mg Tab 10 Mg PO DAILY Atorvastatin (Atorvastatin Calcium) 40 Mg Tab 40 Mg PO HS Flomax (Tamsulosin HCl) 0.4 Mg Cap 0.4 Mg PO HS Review of Systems Except as stated in HPI: all other systems reviewed are Neg Physical Exam Narrative GENERAL: Well-nourished male patient tearful but in no acute distress. SKIN: Focused skin assessment warm/dry. HEAD: Atraumatic. Normocephalic. EYES: Pupils equal and round. No scleral icterus. No injection or drainage. ENT: No nasal bleeding or discharge. Mucous membranes pink and moist. NECK: Trachea midline. No JVD. CARDIOVASCULAR: Regular rate and rhythm. No murmur appreciated. RESPIRATORY: No accessory muscle use. Clear to auscultation. Breath sounds equal bilaterally. GASTROINTESTINAL: Abdomen soft, non-tender, nondistended. Hepatic and splenic margins not palpable. MUSCULOSKELETAL: No obvious deformities. No clubbing. No cyanosis. No edema. NEUROLOGICAL: Awake and alert. No obvious cranial nerve deficits. Motor grossly within normal limits. Normal speech. Data Data Last Documented VS Vital Signs Date Time Temp Pulse Resp B/P (MAP) Pulse Ox O2 Delivery O2 Flow Rate FiO2 11/11/17 22:42 62 16 174/90 (118) 97 Room Air 11/11/17 21:03 97.9 Orders Orders Complete Blood Count With Diff (11/11/17 21:19) Basic Metabolic Panel (Bmp) (11/11/17 21:19) Psych Screen (11/11/17 21:19) Drug Screen, Random Urine (11/11/17 21:19) Alcohol (Ethanol) (11/11/17 21:19) Labs Laboratory Tests Test 11/11/17 21:30 11/11/17 22:30 White Blood Count 9.0 TH/MM3 Red Blood Count 4.32 MIL/MM3 Hemoglobin 13.3 GM/DL Hematocrit 39.7 % Mean Corpuscular Volume 91.9 FL Mean Corpuscular Hemoglobin 30.7 PG Mean Corpuscular Hemoglobin Concent 33.4 % Red Cell Distribution Width 14.7 % Platelet Count 199 TH/MM3 Mean Platelet Volume 9.1 FL Neutrophils (%) (Auto) 64.7 % Lymphocytes (%) (Auto) 22.4 % Monocytes (%) (Auto) 9.8 % Eosinophils (%) (Auto) 2.2 % Basophils (%) (Auto) 0.9 % Neutrophils # (Auto) 5.8 TH/MM3 Lymphocytes # (Auto) 2.0 TH/MM3 Monocytes # (Auto) 0.9 TH/MM3 Eosinophils # (Auto) 0.2 TH/MM3 Basophils # (Auto) 0.1 TH/MM3 CBC Comment DIFF FINAL Differential Comment Blood Urea Nitrogen 24 MG/DL Creatinine 1.27 MG/DL Random Glucose 102 MG/DL Calcium Level 8.6 MG/DL Sodium Level 138 MEQ/L Potassium Level 3.6 MEQ/L Chloride Level 104 MEQ/L Carbon Dioxide Level 28.5 MEQ/L Anion Gap 6 MEQ/L Estimat Glomerular Filtration Rate 59 ML/MIN Ethyl Alcohol Level LESS THAN 3 MG/DL Urine Opiates Screen NEG Urine Barbiturates Screen NEG Urine Amphetamines Screen NEG Urine Benzodiazepines Screen NEG Urine Cocaine Screen NEG Urine Cannabinoids Screen NEG MDM Medical Decision Making Medical Screen Exam Complete: Yes Emergency Medical Condition: Yes Medical Record Reviewed: Yes Differential Diagnosis Mood disorder versus personality disorder versus adjustment reaction disorder Narrative Course 57-year-old male presents to emergency department voluntarily for psychiatric evaluation. Patient appears without distress. He does verbalize thoughts of suicide and thinking of methods to follow-through. Lab work is reviewed and without acute abnormality. Patient is medically cleared to undergo psychiatric screening for further evaluation and disposition. Mental health screening discussed with the patient. Psychiatric screen ordered. Diagnosis Primary Impression: Suicidal ideation Condition: Stable Snehal Bishop Nov 11, 2017 21:20
[2017-11-11] MEDS ORDERED: SERO400T PO (21:27)
[2017-11-11] MEDS ORDERED: TRAZ300T2 PO (21:27)
[2017-11-11] MEDS ORDERED: BUPR100CR PO (21:27)
[2017-11-11] MEDS ORDERED: VALS1TAB63 PO (21:27)
[2017-11-11 22:04] LABS: AUTOMATED NEUTROPHIL # 5.8 TH/MM3 (1.8-7.7); BASOPHIL # 0.1 TH/MM3 (0-0.2); BASOPHIL % 0.9 % (0.0-2.0); EOSINOPHIL # 0.2 TH/MM3 (0-0.4); EOSINOPHIL % 2.2 % (0.0-4.0); HEMATOCRIT 39.7 % (39.0-51.0); HEMOGLOBIN 13.3 GM/DL (13.0-17.0); LYMPH % 22.4 % (9.0-44.0); MEAN CELL VOLUME 91.9 FL (80.0-100.0); MEAN CORPUSCULAR HEMOGLOBIN 30.7 PG (27.0-34.0); MEAN CORPUSCULAR HGB CONC 33.4 % (32.0-36.0); MEAN PLATELET VOLUME 9.1 FL (7.0-11.0); MONO % 9.8 % (0.0-8.0); MONOCYTE # 0.9 TH/MM3 (0-0.9); NEUT % 64.7 % (16.0-70.0); PLATELET COUNT 199 TH/MM3 (150-450); RED BLOOD COUNT 4.32 MIL/MM3 (4.50-5.90); RED CELL DISTRIBUTION WIDTH 14.7 % (11.6-17.2)
[2017-11-11 22:18] LABS: BICARBONATE 28.5 MEQ/L (21.0-32.0); BLOOD UREA NITROGEN 24 MG/DL (7-18); CALCIUM 8.6 MG/DL (8.5-10.1); CHLORIDE 104 MEQ/L (98-107); CREATININE 1.27 MG/DL (0.60-1.30); GLOMERULAR FILTRATION RATE 59 ML/MIN (>89); GLUCOSE,RANDOM 102 MG/DL (74-106); SODIUM (NA) 138 MEQ/L (136-145)
[2017-11-11 22:42] VITALS: BP 174/90; PULSE 62; RESP 16; O2SAT 97
[2017-11-11] MEDS ORDERED: VIST50CA PO (22:55)
[2017-11-11] MEDS ORDERED: CLON0.1T PO (22:55)
[2017-11-12] MEDS ORDERED: cloNIDine HCL 0.1 MG TAB PO ONE (13:45)
[2017-11-12] MEDS ORDERED: LISINOPRIL 10 MG TAB PO ONE (13:45)
[2017-11-12] MEDS ORDERED: ACETAMINOPHEN 325 MG TAB PO ONE (13:45)
[2017-11-12 13:57] VITALS: BP_SYST 211; BP_SYST 223; BP_DIAS 113; PULSE 78; RESP 20; O2SAT 100
[2017-11-12 14:52] VITALS: BP 128/84; PULSE 74; RESP 20
--- NOTE | 2017-11-12 15:05 | PD ---
History of Present Illness Chief Complaint: Psychiatric Symptoms Time Seen by Provider: 14:30 Travel History International Travel<30 Days: No Contact w/Intl Traveler<30days: No Known affected area: No Legal Status Legal Status: Voluntary History of Present Illness: History of Present Illness HPI 57-year-old male with reported history of depression and schizophrenia who presents to emergency department voluntarily for psychiatric evaluation. Patient reported to ED provider that he has been having worsening suicidal thoughts. With no no active plan at this time to me but states he has thought of "several ways to end his life." The patient had been to [facility] crisis unit earlier in the day and had reported to them that he was off his medication and that he was hearing voices telling him to hurt himself. They were unable to treat him that they're since his blood pressure was high so he was asked to come to [facility] for evaluation of elevated blood pressure. As per the documentation that they have sent he was at their crisis unit from November 02 until November 06. Patient seen. Electronic medical record reviewed. The patient was most recently admitted to the psychiatric unit here at [facility] on October 31 to the for treatment of depression. He was evaluated here in the emergency department on November 04 where he presented with complaints of chest pain. At that visit the patient did not verbalize any psychiatric complaints. Patient is seen in main ED. He appears to be resting comfortably. He reports that he came to the emergency department because he was hearing voices that are telling him to harm himself. He has been hearing these voices for some time now but he is unable to identify any other details about such voices. He does not verbalize any current active suicidal plan. He does not appear to be responding to internal stimuli. I cannot elicit any other psychotic symptomatology including no delusions, no paranoia, there is no evidence of any adarsh or hypomania. His speech is clear, logical, goal-directed. Patient does give a vague and at times conflicting history of events. He states he has been here in the [facility] for the last 3 months and that his he has been homeless for the past 3 months is as well. He had reported during his admission that he had been at [facility] , a sober living house, and was asked to leave due to having a relapse. Patient's concentration and attention are adequate. No significant depression or anxiety is reported and no significant objective clinical symptoms of depression or anxiety are noted. When asked when his goals are in terms of treatment he tells me that he is wanting to get back to [place] and that he is placed on a waiting list for a bed at a facility in that area and that his agricultural technical officer is helping him with that. He also tells me that he's trying to get into the [facility] in [place] that he might have a bed there either later today or tomorrow. Patient is also concerned regarding his being homeless and not finding a place to stay for tonight. In terms of substance abuse patient current toxicology is negative. He reports that he relapsed and used alcohol one month ago. PFS Past Medical History Anxiety: Yes Depression: Yes Cardiac Catheterization: Yes Cardiovascular Problems: Yes (HTN) High Cholesterol: Yes Coronary Artery Disease: Yes Diminished Hearing: No Headaches: No Hypertension: Yes Psychiatric: Yes (Reported history of treatment for Schizophrenia and Depression) Schizophrenia: Yes Psychiatric History Psychiatric History Hx Psychiatric Treatment: Pt has a history of inpatient psychiatric services through [facility]. His last psychiatric admission was at [facility] in October 2017. He reported a history of outpatient psychiatric services in [facility] . He states that he was diagnosed with schizophrenia 2 years ago after he stole a car from a car dealership and was diagnosed while in [facility]. History of Inpatient Treatment: Yes Guns or firearms in home: No Social History Single, homeless male. Currently unemployed and has applied for disability. 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 Has 1 daughter in the area. Hx Alcohol Use: Yes Hx Tobacco Use: No (PT DENIES ) Hx Substance Use: No (PT DENIES AT THIS TIME) Substance Use Type: Alcohol Hx of Substance Use Treatment: Yes Family Psychiatric History 1 sister with reported mental health issues. Allergies-Medications (Allergen,Severity, Reaction): Coded Allergies: No Known Allergies (Unverified , 11/11/17) Reported Meds & Prescriptions Reported Meds & Active Scripts Active Aripiprazole 5 Mg Tab 5 Mg PO DAILY 5 Days Reported Clonidine (Clonidine HCl) 0.1 Mg Tab 0.1 Mg PO ONCE Clonidine (Clonidine HCl) 0.1 Mg Tab 0.1 Mg PO ONCE Vistaril (Hydroxyzine Pamoate) 50 Mg Cap 50 Mg PO ONCE Clonidine (Clonidine HCl) 0.1 Mg Tab 0.1 Mg PO ONCE Valsartan 40 Mg Tab 20 Mg PO BID Wellbutrin SR 12 HR (Bupropion HCl) 100 Mg Tab 100 Mg PO Q12HR Seroquel (Quetiapine Fumarate) 400 Mg Tab 400 Mg PO DAILY Trazodone (Trazodone HCl) 300 Mg Tab 200 Mg PO HS Ativan (Lorazepam) 1 Mg Tab 1 Mg PO BID Clonidine (Clonidine HCl) 0.3 Mg Tab 0.3 Mg PO BID Lisinopril 10 Mg Tab 10 Mg PO DAILY Atorvastatin (Atorvastatin Calcium) 40 Mg Tab 40 Mg PO HS Flomax (Tamsulosin HCl) 0.4 Mg Cap 0.4 Mg PO HS Review of Systems Except as stated in HPI: all other systems reviewed are Neg Mental Status Examination Appearance: Appropriate (in hospital gown) Consciousness: Alert Orientation: x4 Motor Activity: Other (patient remains and that) Speech: Unremarkable Language: Adequate Fund of Knowledge: Adequate Attention and Concentration: Adequate Memory: Unremarkable Mood: Appropriate Affect: Appropriate Thought Process & Associations: Intact, Logical, Goal directed Thought Content: Appropriate Hallucination Type: None (does not appear to be responding to any internal stimuli) Delusion Type: None Suicidal Ideation: No Suicidal Plan: No Suicidal Intention: No Homicidal Ideation: No Homicidal Plan: No Homicidal Intention: No Insight: Poor Judgment: Impulsive MDM Medical Decision Making Medical Record Reviewed: Yes Assessment/Plan 57-year-old male with reported history of schizophrenia, alcohol dependence who presents to emergency department voluntarily for psychiatric evaluation. The patient had presented himself to [facility] reporting auditory hallucinations telling him to harm himself. He was sent here to [facility] due to uncontrolled hypertension. The patient has been monitored in main ED. He has presented no behavioral concerns and no suicidality as per the nurses report. The patient when interviewed does not appear to be responding to internal stimuli whatsoever. He is cognitively intact. He makes his needs known including his need for half-way. He is future oriented and is awaiting for either a bed placement in [place] at a substance abuse treatment facility or for a bed at the [facility] in [place]. I have discussed with him at that if he wants to start back on his medication he can present himself tomorrow morning at 7:30 at [facility] outpatient clinic. He will be provided with a referral for a half-way that is opened during the cold weather. At this time the patient does not meet criteria for inpatient psychiatric hospitalization. There is a strong suspicion that he is malingering his symptoms in order to obtain half-way as evidenced by his multiple visits to the ED as well as to [facility]. Patient is psychiatrically clear for discharge from the ED. Orders Orders Complete Blood Count With Diff (11/11/17 21:19) Basic Metabolic Panel (Bmp) (11/11/17 21:19) Psych Screen (11/11/17 21:19) Drug Screen, Random Urine (11/11/17 21:19) Alcohol (Ethanol) (11/11/17 21:19) Diet Regular Basic (11/12/17 Breakfast) Diet Regular Basic (11/12/17 Lunch) Clonidine (Catapres) (11/12/17 13:45) Lisinopril (Prinivil) (11/12/17 13:45) Acetaminophen (Tylenol) (11/12/17 13:45) Results Vital Signs Date Time Temp Pulse Resp B/P (MAP) Pulse Ox O2 Delivery O2 Flow Rate FiO2 11/12/17 14:52 74 20 128/84 (99) 11/12/17 13:57 78 20 211/113 (145) 100 Room Air 223/113 (149) 11/11/17 22:42 62 16 174/90 (118) 97 Room Air 11/11/17 21:03 97.9 59 16 179/110 (133) 98 Room Air Laboratory Tests Test 11/11/17 21:30 11/11/17 22:30 White Blood Count 9.0 Red Blood Count 4.32 Hemoglobin 13.3 Hematocrit 39.7 Mean Corpuscular Volume 91.9 Mean Corpuscular Hemoglobin 30.7 Mean Corpuscular Hemoglobin Concent 33.4 Red Cell Distribution Width 14.7 Platelet Count 199 Mean Platelet Volume 9.1 Neutrophils (%) (Auto) 64.7 Lymphocytes (%) (Auto) 22.4 Monocytes (%) (Auto) 9.8 Eosinophils (%) (Auto) 2.2 Basophils (%) (Auto) 0.9 Neutrophils # (Auto) 5.8 Lymphocytes # (Auto) 2.0 Monocytes # (Auto) 0.9 Eosinophils # (Auto) 0.2 Basophils # (Auto) 0.1 CBC Comment DIFF FINAL Differential Comment Blood Urea Nitrogen 24 Creatinine 1.27 Random Glucose 102 Calcium Level 8.6 Sodium Level 138 Potassium Level 3.6 Chloride Level 104 Carbon Dioxide Level 28.5 Anion Gap 6 Estimat Glomerular Filtration Rate 59 Ethyl Alcohol Level LESS THAN 3 Urine Opiates Screen NEG Urine Barbiturates Screen NEG Urine Amphetamines Screen NEG Urine Benzodiazepines Screen NEG Urine Cocaine Screen NEG Urine Cannabinoids Screen NEG Diagnosis Primary Impression: Malingering Additional Impression: Alcohol abuse Ruled Out: Suicidal ideation Psychiatrically Cleared: Yes Med/ Other Pt Specific Info: No Meds Exist/No RX given Disposition: 01 DISCHARGE HOME Condition: Stable Problem Qualifiers Mary Valladares Nov 12, 2017 15:05
--- NOTE | 2017-11-12 15:05 | PD ---
Physical Exam Narrative GENERAL: SKIN: Warm and dry. HEAD: Atraumatic. Normocephalic. EYES: Pupils equal and round. No scleral icterus. No injection or drainage. ENT: No nasal bleeding or discharge. Mucous membranes pink and moist. NECK: Trachea midline. No JVD. CARDIOVASCULAR: Regular rate and rhythm. RESPIRATORY: No accessory muscle use. Clear to auscultation. Breath sounds equal bilaterally. GASTROINTESTINAL: Abdomen soft, non-tender, nondistended. MUSCULOSKELETAL: Extremities without clubbing, cyanosis, or edema. No obvious deformities. NEUROLOGICAL: Awake and alert. No obvious cranial nerve deficits. Motor grossly within normal limits. Five out of 5 muscle strength in the arms and legs. Normal speech. PSYCHIATRIC: Appropriate mood and affect; insight and judgment normal. Data Data Last Documented VS Vital Signs Date Time Temp Pulse Resp B/P (MAP) Pulse Ox O2 Delivery O2 Flow Rate FiO2 11/12/17 14:52 74 20 128/84 (99) 11/12/17 13:57 100 Room Air 11/11/17 21:03 97.9 Orders Orders Complete Blood Count With Diff (11/11/17 21:19) Basic Metabolic Panel (Bmp) (11/11/17 21:19) Psych Screen (11/11/17 21:19) Drug Screen, Random Urine (11/11/17 21:19) Alcohol (Ethanol) (11/11/17 21:19) Diet Regular Basic (11/12/17 Breakfast) Diet Regular Basic (11/12/17 Lunch) Clonidine (Catapres) (11/12/17 13:45) Lisinopril (Prinivil) (11/12/17 13:45) Acetaminophen (Tylenol) (11/12/17 13:45) Ed Discharge Order (11/12/17 15:03) Labs Laboratory Tests Test 11/11/17 21:30 11/11/17 22:30 White Blood Count 9.0 TH/MM3 Red Blood Count 4.32 MIL/MM3 Hemoglobin 13.3 GM/DL Hematocrit 39.7 % Mean Corpuscular Volume 91.9 FL Mean Corpuscular Hemoglobin 30.7 PG Mean Corpuscular Hemoglobin Concent 33.4 % Red Cell Distribution Width 14.7 % Platelet Count 199 TH/MM3 Mean Platelet Volume 9.1 FL Neutrophils (%) (Auto) 64.7 % Lymphocytes (%) (Auto) 22.4 % Monocytes (%) (Auto) 9.8 % Eosinophils (%) (Auto) 2.2 % Basophils (%) (Auto) 0.9 % Neutrophils # (Auto) 5.8 TH/MM3 Lymphocytes # (Auto) 2.0 TH/MM3 Monocytes # (Auto) 0.9 TH/MM3 Eosinophils # (Auto) 0.2 TH/MM3 Basophils # (Auto) 0.1 TH/MM3 CBC Comment DIFF FINAL Differential Comment Blood Urea Nitrogen 24 MG/DL Creatinine 1.27 MG/DL Random Glucose 102 MG/DL Calcium Level 8.6 MG/DL Sodium Level 138 MEQ/L Potassium Level 3.6 MEQ/L Chloride Level 104 MEQ/L Carbon Dioxide Level 28.5 MEQ/L Anion Gap 6 MEQ/L Estimat Glomerular Filtration Rate 59 ML/MIN Ethyl Alcohol Level LESS THAN 3 MG/DL Urine Opiates Screen NEG Urine Barbiturates Screen NEG Urine Amphetamines Screen NEG Urine Benzodiazepines Screen NEG Urine Cocaine Screen NEG Urine Cannabinoids Screen NEG MDM Medical Record Reviewed: Yes Supervised Visit with [facility]: Yes Narrative Course PATIENT WAS MEDICALLY CLEARED AND MEDICALLY STABLE....FURTHERMORE AFTER BEEN SEEN BY [facility] FROM PSYCHIATRY, NOT FOUND TO BE SUICIDAL/HOMICIDAL AT THIS TIME AND ALSO AGREES TO VERBALLY SIGN SAFETY CONTRACT. WILL BE SEEN OUTPATIENT Diagnosis Primary Impression: MEDICAL CLEARANCE Patient Instructions: General Instructions Disposition: 01 DISCHARGE HOME Condition: Stable Santiago Bateman MD Nov 12, 2017 15:05
[2017-11-13] MEDS ORDERED: CLON0.1T PO (03:54)
[2017-11-13] MEDS ORDERED: LISI10TA3 PO (03:54)
== END 2017-11-12 15:22 | disposition home or self-care (01) ==
LOC: NEPD 21:00
DX: R45.851 Suicidal ideations (principal); F10.10 Alcohol abuse, uncomplicated; F20.9 Schizophrenia, unspecified; I10 Essential (primary) hypertension; F41.9 Anxiety disorder, unspecified; E78.00 Pure hypercholesterolemia, unspecified; I25.10 Atherosclerotic heart disease of native coronary artery without angina pectoris; Z76.5 Malingerer [conscious simulation]; Z79.899 Other long term (current) drug therapy
CPT/HCPCS: 80048; 80307; 85025; 99283

== ENCOUNTER 2017-11-13 01:25 | Emergency (ER) | payer SELFPAY ==
[~2017-11-13] VITALS: Ht 165.1 cm; Wt 110.0 kg
[~2017-11-13 01:25] MED LIST changes: +BUPR100CR PO; +CLON0.1T PO; +SERO400T PO; +TRAZ300T2 PO; +VALS1TAB63 PO; +VIST50CA PO
[2017-11-13 01:26] VITALS: BP 190/90; PULSE 55; RESP 16; TEMP 97.8; O2SAT 98
[2017-11-13] MEDS ORDERED: CLON0.1T PO (03:54)
[2017-11-13] MEDS ORDERED: LISI10TA3 PO (03:54)
[2017-11-13 04:00] VITALS: BP 177/81; PULSE 57; RESP 18; O2SAT 100
[2017-11-13] MEDS ORDERED: LISINOPRIL 10 MG TAB PO ONE (04:00)
--- NOTE | 2017-11-13 04:03 | PD ---
HPI Chief Complaint: Suicide Ideation/Attempt Time Seen by Provider: 02:51 Travel History International Travel<30 days: No Contact w/Intl Traveler<30days: No Traveled to known affect area: No History of Present Illness HPI 57-year-old white male presents to emergency department on a voluntary basis requesting psychological evaluation as well as medical treatment of his blood pressure. This is a patient was just seen earlier in the day and discharge. Patient also was seen at [facility] today before that. The patient states that he moved to [facility] 3 months ago from [facility]. He does not have a primary care doctor or a psychiatrist. He states that he is concern for his well-being. He's noticed himself walking out into traffic and is afraid that he may hurt himself. The patient denies any active plan on suicide. The patient is very vague on his psychiatric issues with me. The patient appears to be more interested in sleeping. The patient does arouse but then lays back down and closes his eyes. He denies any homicidal ideation. He denies any complaints of fever chills, chest pain, shortness of breath, nausea, vomiting, diarrhea or abdominal pain. PFSH Past Medical History Anxiety: Yes Depression: Yes Cardiac Catheterization: Yes Cardiovascular Problems: Yes (HTN) High Cholesterol: Yes Cerebrovascular Accident: Yes Coronary Artery Disease: Yes Diminished Hearing: No Headaches: No Hypertension: Yes Psychiatric: Yes (Reported history of treatment for Schizophrenia and Depression) Schizophrenia: Yes Tetanus Vaccination: < 5 Years Influenza Vaccination: Yes Family History Family Myocardial Infarction: Yes Social History Alcohol Use: No Tobacco Use: No (PT DENIES ) Substance Use: No (PT DENIES AT THIS TIME) Allergies-Medications (Allergen,Severity, Reaction): Coded Allergies: No Known Allergies (Unverified , 11/13/17) Reported Meds & Prescriptions Reported Meds & Active Scripts Active Clonidine (Clonidine HCl) 0.1 Mg Tab 0.1 Mg PO BID Lisinopril 10 Mg Tab 10 Mg PO DAILY Aripiprazole 5 Mg Tab 5 Mg PO DAILY 5 Days Reported Clonidine (Clonidine HCl) 0.1 Mg Tab 0.1 Mg PO ONCE Clonidine (Clonidine HCl) 0.1 Mg Tab 0.1 Mg PO ONCE Vistaril (Hydroxyzine Pamoate) 50 Mg Cap 50 Mg PO ONCE Clonidine (Clonidine HCl) 0.1 Mg Tab 0.1 Mg PO ONCE Valsartan 40 Mg Tab 20 Mg PO BID Wellbutrin SR 12 HR (Bupropion HCl) 100 Mg Tab 100 Mg PO Q12HR Seroquel (Quetiapine Fumarate) 400 Mg Tab 400 Mg PO DAILY Trazodone (Trazodone HCl) 300 Mg Tab 200 Mg PO HS Ativan (Lorazepam) 1 Mg Tab 1 Mg PO BID Clonidine (Clonidine HCl) 0.3 Mg Tab 0.3 Mg PO BID Lisinopril 10 Mg Tab 10 Mg PO DAILY Atorvastatin (Atorvastatin Calcium) 40 Mg Tab 40 Mg PO HS Flomax (Tamsulosin HCl) 0.4 Mg Cap 0.4 Mg PO HS Review of Systems Except as stated in HPI: all other systems reviewed are Neg Psychiatric: Positive: Depression, Suicidal Ideations, Mood Disorder, Substance Abuse, No: Anxiety, Disorder of Thought, Homicidal Ideation Physical Exam Narrative GENERAL: Well-nourished, well-developed patient. The patient is resting comfortable examination room. He sleeping but arouses readily and then falls back to sleep. SKIN: Warm and dry. HEAD: Normocephalic and atraumatic. EYES: No scleral icterus. No injection or drainage. ENT: No nasal drainage noted. Mucous membranes pink. Airway patent. NECK: Supple, trachea midline. Moves head freely without obvious discomfort. CARDIOVASCULAR: Regular rate and rhythm without murmurs, gallops, or rubs. RESPIRATORY: Breath sounds equal bilaterally. No accessory muscle use. GASTROINTESTINAL: Abdomen soft, non-tender, nondistended. EXTREMITIES: No cyanosis or edema. BACK: Nontender without obvious deformity. No CVA tenderness. NEURO: Patient is alert and oriented. no sensorimotor deficits. Nonfocal. Normal speech. PSYCH: No delusions. No auditory or visual hallucinations. Data Data Last Documented VS Vital Signs Date Time Temp Pulse Resp B/P (MAP) Pulse Ox O2 Delivery O2 Flow Rate FiO2 11/13/17 01:26 97.8 55 16 190/90 (123) 98 Room Air Orders Orders Lisinopril (Prinivil) (11/13/17 04:00) Ed Discharge Order (11/13/17 03:54) MDM Medical Decision Making Medical Screen Exam Complete: Yes Emergency Medical Condition: Yes Medical Record Reviewed: Yes Differential Diagnosis MDM: High Differential diagnoses: Schizophrenia, schizoaffective disorder, bipolar, anxiety, depression, adjustment reaction, mood disorder NOS, ODD, depressive disorder NOS, dementia, dementia with agitation, psychosis NOS, substance induced mood disorder, DMDD, Asperger syndrome, infection,electrolyte abnormality, malingering. Narrative Course This is a patient was seen earlier in the day and was medically cleared and was seen by psychiatry. The patient did not meet Gatica act criteria. He was medically cleared and discharged for follow-up. The patient here states to triage that he was suicidal. The patient is very vague. He states that he is concerned that he may walk out to traffic. The patient also reports that he is out of his blood pressure medications and had tried to follow-up with [facility] but they were reluctant to treat him due to his blood pressure. The patient is been living in the area now for 3 months. He has not sought attention by a primary care doctor or a psychiatrist. The patient and my impression does not meet true Gatica act criteria. He is not truly suicidal or homicidal. The patient I believe is malingering. I agreed to give him a dose of blood pressure medicine here in the ER. Lisinopril 10 mg by mouth. I've given him a short course of blood pressure medication. He is given prescriptions for clonidine 0.1 mg twice a day for 10 days as well as lisinopril 10 mg daily for 10 days. He is encouraged to follow-up with the [facility] as well as [facility]. The patient is medically stable for discharge. Diagnosis Primary Impression: Hypertension Qualified Codes: I10 - Essential (primary) hypertension Additional Impressions: Depressed mood Malingering Referrals: [facility] (Out patient) 1 day [facility] 1 day [facility] Patient Instructions: General Instructions Additional Instructions: Rest. Lisinopril and clonidine as directed. Follow-up with the [facility] tomorrow for recheck. Follow-up with [facility] tomorrow for recheck. Return to the ER for emergencies. Med/Other Pt SpecificInfo: Prescription(s) given Scripts Clonidine (Clonidine) 0.1 Mg Tab 0.1 MG PO BID for Blood Pressure Management, #20 TAB 0 Refills Prov: Kelli Henry MD 11/13/17 Lisinopril (Lisinopril) 10 Mg Tab 10 MG PO DAILY, #10 TAB 0 Refills Prov: Kelli Henry MD 11/13/17 Disposition: 01 DISCHARGE HOME Condition: Stable Justin Gasca Nov 13, 2017 04:03
== END 2017-11-13 04:25 | disposition home or self-care (01) ==
LOC: NEPD 01:25
DX: I10 Essential (primary) hypertension (principal); F32.9 Major depressive disorder, single episode, unspecified; E78.00 Pure hypercholesterolemia, unspecified; F20.9 Schizophrenia, unspecified; I25.10 Atherosclerotic heart disease of native coronary artery without angina pectoris; Z76.5 Malingerer [conscious simulation]; Z86.73 Personal history of transient ischemic attack (TIA), and cerebral infarction without residual deficits
CPT/HCPCS: 99284

== ENCOUNTER 2017-11-14 00:59 | Emergency (ER) | payer OTHER ==
[2017-11-14 01:27] VITALS: BP 124/76; PULSE 54; RESP 18; O2SAT 95
[2017-11-14 03:20] VITALS: BP 176/89; PULSE 59; RESP 18; O2SAT 97
--- NOTE | 2017-11-14 03:40 | PD ---
HPI Chief Complaint: Psychiatric Symptoms Time Seen by Provider: 03:24 Travel History International Travel<30 days: No Contact w/Intl Traveler<30days: No Traveled to known affect area: No History of Present Illness HPI The patient is a 57 year old male who presents to the [facility] emergency department with a history of being brought in under a Gatica act that was placed by a physician at [facility] earlier this evening. Act the patient was expressing suicidal ideations and increased depression with the plan to walk out in front of traffic. The patient was evaluated at that facility, blood work was done, the patient was medically cleared for transport over to this facility for evaluation by the psychiatric screener under a Gatica act. The patient on my arrival to the room confirms that he has been feeling increased depression with suicidal ideations. He also reports that over the last 2 days he's had abdominal pain down in bilateral lower quadrants of the abdomen and suprapubic area. He reports having chronic intermittent urinary hesitancy. On review of systems, he denies any recent fevers, cough, congestion , neck pain, chest pain, shortness of breath, vomiting, diarrhea, or neurologic symptoms. [facility] Past Medical History Narrative Medical The patient's past medical history is significant for hypertension, schizophrenia, history of depression Anxiety: Yes Depression: Yes Cardiac Catheterization: Yes Cardiovascular Problems: Yes (HTN) High Cholesterol: Yes Cerebrovascular Accident: Yes Coronary Artery Disease: Yes Diminished Hearing: No Headaches: No Hypertension: Yes Psychiatric: Yes (Reported history of treatment for Schizophrenia and Depression) Schizophrenia: Yes Tetanus Vaccination: Unknown Family History Family Myocardial Infarction: Yes Social History Alcohol Use: No (QUIT) Tobacco Use: No Substance Use: No Allergies-Medications (Allergen,Severity, Reaction): Coded Allergies: No Known Allergies (Unverified , 11/13/17) Reported Meds & Prescriptions Reported Meds & Active Scripts Active Aripiprazole 5 Mg Tab 5 Mg PO DAILY 5 Days Reported Vistaril (Hydroxyzine Pamoate) 50 Mg Cap 50 Mg PO ONCE Valsartan 40 Mg Tab 20 Mg PO BID Wellbutrin SR 12 HR (Bupropion HCl) 100 Mg Tab 100 Mg PO Q12HR Seroquel (Quetiapine Fumarate) 400 Mg Tab 400 Mg PO DAILY Trazodone (Trazodone HCl) 300 Mg Tab 200 Mg PO HS Ativan (Lorazepam) 1 Mg Tab 1 Mg PO BID Clonidine (Clonidine HCl) 0.3 Mg Tab 0.3 Mg PO BID Lisinopril 10 Mg Tab 10 Mg PO DAILY Atorvastatin (Atorvastatin Calcium) 40 Mg Tab 40 Mg PO HS Flomax (Tamsulosin HCl) 0.4 Mg Cap 0.4 Mg PO HS Review of Systems Except as stated in HPI: all other systems reviewed are Neg General / Constitutional: No: Fever Eyes: No: Visual changes HENT: No: Headaches Cardiovascular: No: Chest Pain or Discomfort Respiratory: No: Shortness of Breath Gastrointestinal: Positive: Abdominal Pain, No: Nausea, Vomiting, Diarrhea, Constipation, Loss of Appetite Genitourinary: No: Dysuria Musculoskeletal: No: Pain Skin: No Rash Neurologic: No: Weakness, Focal Abnormalities, Change in Mentation, Slurred Speech, Sensory Disturbance Psychiatric: Positive: Depression, Suicidal Ideations, Mood Disorder Endocrine: No: Polydipsia Hematologic/Lymphatic: No: Easy Bruising Physical Exam Narrative General: The patient is a well-developed well-nourished male in no acute distress. Head and Neck exam: Head is normocephalic atraumatic. Eyes: EOMI, pupils are equal round and reactive to light. Nose: Midline septum with pink mucous membranes Mouth: Dentition unremarkable. Moist mucus membranes. Posterior oropharynx is not erythematous. No tonsillar hypertrophy. Uvula midline. Airway patent. Neck: No palpable lymphadenopathy. No nuchal rigidity. No thyromegaly. Cardiovascular: Regular rate and rhythm without murmurs, gallops, or rubs. Lungs: Clear to auscultation bilaterally. No wheezes, rhonchi, or rales. Abdomen: Soft, with reported tenderness on palpation in the suprapubic area and bilateral lower quadrants of the abdomen. No other tenderness on palpation of the other quadrants of the abdomen. No guarding, rebound, or rigidity. No tenderness specifically on palpation over McBurney's point. Negative Mcgowan's sign. Extremities: No clubbing, cyanosis, or edema. 2+ pulses in all 4 extremities. No calf tenderness on palpation. Back: No spinous process tenderness to palpation. No costovertebral angle tenderness to palpation. Neurologic Exam: Grossly nonfocal. Skin Exam: No rash noted. Intact skin that is warm and dry. Data Data Last Documented VS Vital Signs Date Time Temp Pulse Resp B/P (MAP) Pulse Ox O2 Delivery O2 Flow Rate FiO2 11/14/17 03:20 59 18 176/89 (118) 97 Room Air Orders Orders Ct Abd/Pel W/O Iv Contrast (11/14/17 03:38) Clonidine (Catapres) (11/14/17 03:45) MDM Medical Decision Making Medical Screen Exam Complete: Yes Emergency Medical Condition: Yes Medical Record Reviewed: Yes Interpretation(s) Last Impressions Abdomen/Pelvis CT 11/14/17 0338 Signed Impressions: Service Date/Time: Tuesday, November 14, 2017 03:37 - CONCLUSION: 1. No evidence of acute abdominal or pelvic process. No masses are identified. Saqib Helton MD Differential Diagnosis Urinary tract infection, versus prostatitis, versus diverticulitis, versus kidney stone, versus constipation, versus colonic spasm Narrative Course During the course of the patients emergency department visit, the patients history, examination, and differential diagnosis were reviewed with the patient. The patient was placed on a field radio operator with oximetry and frequent blood pressure monitoring. The patient had laboratory studies done at [facility]. These were provided by that facility. No imaging of the abdomen was done at that time. Therefore CT scan of the abdomen and pelvis was ordered at this facility. The patients laboratory studies were reviewed from the other facility and remarkable for a white count of 8.5, hemoglobin 12.8, platelets 220 with 68.5 neutrophils, lymphocytes 21.1, monocytes 7.4, sodium 139, potassium 4.1, chloride 100, CO2 24, BUN 22.1, creatinine 1.32. Glucose was 100. TSH 1.38. Acetaminophen less than 5, salicylate less than 3, alcohol level LI. Urinalysis shows trace protein 2 wbc's, less than 1 RBC, trace bacteria, trace mucus, culture not indicated. Urine drug screen was negative. Radiology studies were reviewed and remarkable for a CT scan of the abdomen and pelvis that shows no acute abnormality. The patient was requesting to eat. The patient was provided food and drink. The patient tolerated this well. A psychiatric screen was ordered. The patient has been medically cleared for evaluation by the psychiatric screener and psychiatrist under a Gatica act. Diagnosis Primary Impression: Depression with suicidal ideation Additional Impression: Abdominal pain Qualified Codes: R10.30 - Lower abdominal pain, unspecified Kelli Henry MD Nov 14, 2017 03:40
[2017-11-14] MEDS ORDERED: cloNIDine HCL 0.1 MG TAB PO ONE ×2 (03:45→06:45)
--- NOTE | 2017-11-14 04:41 | RADRPT ---
EXAM DATE/TIME: 11/14/2017 03:37 [place] COMPARISON: No previous studies available for comparison. INDICATIONS : Bilateral lower abdomen pain. ORAL CONTRAST: No oral contrast ingested. RADIATION DOSE: 20.06 CTDIvol (mGy) MEDICAL HISTORY : None SURGICAL HISTORY : None. ENCOUNTER: Initial ACUITY: 1 day PAIN SCALE: 6/10 LOCATION: Bilateral lower quadrant TECHNIQUE: Volumetric scanning of the abdomen and pelvis was performed. Using automated exposure control and ad justment of the mA and/or kV according to patient size, radiation dose was kept as low as reasonably achievable to obtain optimal diagnostic quality images. DICOM format image data is available electro nically for review and comparison. FINDINGS: Examination of the lung bases demonstrates no abnormality. No pleural fluid is identified. No pulmona ry nodules are present. The liver and spleen are free of focal defects. The gallbladder and pancreas demonstrate no abnormality. The adrenal glands are normal. The kidneys demonstrate no evidence of taran id renal mass or hydronephrosis. No free fluid or abdominal masses are identified. No para-aortic micha nopathy is seen. Examination of the pelvis demonstrates no evidence of free fluid or pelvic mass. No abnormally enlarg ed inguinal or retroperitoneal lymph nodes are present. The bladder is unremarkable. There is diverti culosis without evidence of diverticulitis. CONCLUSION: 1. No evidence of acute abdominal or pelvic process. No masses are identified. Saqib Helton MD on November 14, 2017 at 4:37 Board Certified Radiologist. This report was verified electronically.
[2017-11-14 06:42] VITALS: BP 163/100; PULSE 51; RESP 20; O2SAT 98
[2017-11-14 07:48] VITALS: BP 172/90
[2017-11-14 08:22] VITALS: BP 178/92; PULSE 52; RESP 16; TEMP 98.3; O2SAT 97
--- NOTE | 2017-11-14 10:10 | PD ---
Physical Exam Date Seen by Provider: Nov 14, 2017 Time Seen by Provider: 10:10 Narrative 57 year old male patient presented to our facility under a gatica act. He was cleared medically and psychiatrically. Gatica act was lifts by psychiatrist. I was asked to disposition the patient. Data Data Last Documented VS Vital Signs Date Time Temp Pulse Resp B/P (MAP) Pulse Ox O2 Delivery O2 Flow Rate FiO2 11/14/17 08:22 98.3 52 16 178/92 (120) 97 11/14/17 06:42 Room Air Orders Orders Ct Abd/Pel W/O Iv Contrast (11/14/17 03:38) Clonidine (Catapres) (11/14/17 03:45) Clonidine (Catapres) (11/14/17 06:45) Diet Regular Basic (11/14/17 Breakfast) Ed Discharge Order (11/14/17 10:10) Diet Regular Basic (11/14/17 Lunch) MDM Supervised Visit with [facility]: Yes Narrative Course 57 year old male patient presented to our facility under a gatica act. He was cleared medically and psychiatrically. Gatica act was lifts by psychiatrist. I was asked to disposition the patient. No homicidal or suicidal ideation at this time. Patient stable for discharge and will be discharged home at this time. Diagnosis Primary Impression: Depression with suicidal ideation Additional Impression: Abdominal pain Qualified Codes: R10.30 - Lower abdominal pain, unspecified Disposition: 01 DISCHARGE HOME Condition: Stable Samreen Mitchelljennifer MCMANUS Nov 14, 2017 10:10
--- NOTE | 2017-11-14 13:53 | PD.PSY.CON ---
Provisional Diagnosis Admission Date [place]. Antisocial personality disorder, malingering [place]. The patient is a 57-year-old man, homeless, single, unemployed, well known by the psychiatric service, with a psychiatric history of bipolar disorder , or treatable psychiatric hospitalizations, multiple ER visits, he was just discharged from these ER 2 days ago, but he was discharged from an inpatient hospitalization on October 31, who presents to the [facility] emergency department with a history of being brought in under a Gatica act that was placed by a physician at [facility] earlier this evening. Act the patient was expressing suicidal ideations and increased depression with the plan to walk out in front of traffic. The patient was evaluated at that facility, blood work was done, the patient was medically cleared for transport over to this facility for evaluation by the psychiatric screener under a Gatica act. The patient on my arrival to the room confirms that he has been feeling increased depression with suicidal ideation "because I had no place to go, and no place to live". She says that he has not followed the recommendation from his last hospitalization by going to outpatient care. He has not taken his medications. Patient is focused in admission and talking with the rn social services for housing. History of Present Illness Service Psychiatry Consult Requested By ER Reason for Consult Suicidal ideation Primary Care Physician No Primary Care Physician Past Family Social History Coded Allergies: No Known Allergies (Unverified , 11/13/17) Active Scripts Aripiprazole (Aripiprazole) 5 Mg Tab, 5 MG PO DAILY for Mental Health for 5 Days , #5 TAB 2 Refills Prov:Saqib Colvin MD 11/02/17 Reported Medications Hydroxyzine Pamoate (Vistaril) 50 Mg Cap, 50 MG PO ONCE, CAP 0 Refills 11/11/17 Valsartan (Valsartan) 40 Mg Tab, 20 MG PO BID, #30 TAB 0 Refills 11/11/17 Bupropion HCl ER 12 HR (Wellbutrin SR 12 HR) 100 Mg Tab, 100 MG PO Q12HR for Control Depression, TAB 0 Refills 11/11/17 Quetiapine (Seroquel) 400 Mg Tab, 400 MG PO DAILY, #30 TAB 0 Refills 11/11/17 Trazodone (Trazodone) 300 Mg Tab, 200 MG PO HS for Control Depression, #30 TAB 0 Refills 11/11/17 Lorazepam (Ativan) 1 Mg Tab, 1 MG PO BID, TAB 0 Refills 11/04/17 Clonidine (Clonidine) 0.3 Mg Tab, 0.3 MG PO BID for Blood Pressure Management, # 60 TAB 0 Refills 09/26/17 Lisinopril (Lisinopril) 10 Mg Tab, 10 MG PO DAILY, #30 TAB 0 Refills 09/26/17 Atorvastatin (Atorvastatin) 40 Mg Tab, 40 MG PO HS for Cholesterol Management, # 30 TAB 0 Refills 09/25/17 Tamsulosin (Flomax) 0.4 Mg Cap, 0.4 MG PO HS for Manage Prostate Problems, #30 CAP 0 Refills 09/25/17 Discontinued Reported Medications Clonidine (Clonidine) 0.1 Mg Tab, 0.1 MG PO ONCE for Blood Pressure Management, #60 TAB 0 Refills 11/11/17 Clonidine (Clonidine) 0.1 Mg Tab, 0.1 MG PO ONCE for Blood Pressure Management, #60 TAB 0 Refills 11/11/17 Clonidine (Clonidine) 0.1 Mg Tab, 0.1 MG PO ONCE for Blood Pressure Management, #60 TAB 0 Refills 11/11/17 Discontinued Scripts Clonidine (Clonidine) 0.1 Mg Tab, 0.1 MG PO BID for Blood Pressure Management, # 20 TAB 0 Refills Prov:Kelli Henry MD 11/13/17 Lisinopril (Lisinopril) 10 Mg Tab, 10 MG PO DAILY, #10 TAB 0 Refills Prov:Kelli Henry MD 11/13/17 Azithromycin (Azithromycin) 250 Mg Tab, 500 MG PO DAILY for Bronchitis, #3 TAB Prov:Gino Carrero MD 11/02/17 Physical Exam Vital Signs Vital Signs Date Time Temp Pulse Resp B/P (MAP) Pulse Ox O2 Delivery O2 Flow Rate FiO2 11/14/17 10:35 11/14/17 08:22 98.3 52 16 97 11/14/17 06:42 Room Air Mental Status Examination Appearance: Appropriate Consciousness: Alert Orientation: x4 Motor Activity: Normal gait Speech: Unremarkable Language: Adequate Fund of Knowledge: Adequate Attention and Concentration: Adequate Memory: Unremarkable Mood: Oppositional Affect: Irritable Thought Process & Associations: Intact Thought Content: Appropriate Delusion Type: None Suicidal Ideation: No Suicidal Plan: No Suicidal Intention: No Homicidal Ideation: No Homicidal Plan: No Homicidal Intention: No Insight: Adequate Judgment: Adequate Assessment & Plan Problem List: (1) Antisocial personality disorder ICD Codes: F60.2 - Antisocial personality disorder Assessment & Plan: At this moment the patient does not meet criteria for involuntary psychiatric admission. Patient doesn't benefit of inpatient treatment since he doesn't follow recommendations and take medications as prescribed. My impression is that the patient is using psychiatric symptoms as a way to use the hospital as a Correction. Extensive psychoeducation has been provided to the patient. He was given a referral to a Correction and gatica act lifted. Assessment & Plan Estimated LOS: Mike Webb MD Nov 14, 2017 13:53
== END 2017-11-14 10:40 | disposition home or self-care (01) ==
LOC: NEPE 00:59 → NEPJ 10:40
DX: R45.851 Suicidal ideations (principal); F60.2 Antisocial personality disorder; F32.9 Major depressive disorder, single episode, unspecified; R10.30 Lower abdominal pain, unspecified; F20.9 Schizophrenia, unspecified; I10 Essential (primary) hypertension; Z76.5 Malingerer [conscious simulation]
CPT/HCPCS: 74176; 99284

== ENCOUNTER 2017-11-14 21:25 | Emergency (ER) | payer OTHER ==
[2017-11-14 21:42] VITALS: BP 167/90; PULSE 78; RESP 18; O2SAT 99
[2017-11-14 22:01] LABS: BILIRUBIN, URINE NEG (NEG); BLOOD, URINE NEG (NEG); GLUCOSE,URINE NEG (NEG); KETONE, URINE NEG (NEG); NITRITE,URINE NEG (NEG); PH, URINE 5.5 (5.0-8.5); SQUAMOUS EPITHELIAL CELL URINE <1 /hpf (0-5); URINE COLOR LIGHT-YELLOW (YELLW/STRAW); URINE LEUKOCYTE ESTERASE NEG (NEG)
[2017-11-14 23:22] VITALS: BP 164/101; PULSE 61; RESP 18; O2SAT 97
--- NOTE | 2017-11-14 23:43 | PD ---
HPI Chief Complaint: Psychiatric Symptoms Time Seen by Provider: 23:28 Travel History International Travel<30 days: No Contact w/Intl Traveler<30days: No Traveled to known affect area: No History of Present Illness HPI This is a 57-year-old male who presents to the emergency department with a history of chronic homelessness requesting to be admitted psychiatrically and requesting refills of his blood pressure and psychiatric medications, constant, moderate severity with no active suicidal ideation. He says that he has a history of jumping in front of bus is when he gets depressed and he says he feels unstable with his schizophrenia. Patient has been seen in the emergency department 5 times in the past 2 weeks and was admitted psychiatrically between October 31 and . He was seen just this morning by psychiatry Dr. Webb and discharged. He says that he is out of his blood pressure medications because he left him here at [facility]. He denies receiving prescriptions for psychiatric medications upon discharge from inpatient psychiatry. He says every time he goes to [facility] they refused him because of his blood pressure. PFSH Past Medical History Anxiety: Yes Depression: Yes Cardiac Catheterization: Yes Cardiovascular Problems: Yes (HTN) High Cholesterol: Yes Cerebrovascular Accident: Yes Coronary Artery Disease: Yes Diminished Hearing: No Headaches: No Hypertension: Yes Psychiatric: Yes (Reported history of treatment for Schizophrenia and Depression) Schizophrenia: Yes ?: Not Family History Family Myocardial Infarction: Yes Social History Alcohol Use: No (QUIT) Tobacco Use: No Substance Use: No Allergies-Medications (Allergen,Severity, Reaction): Coded Allergies: No Known Allergies (Unverified , 11/13/17) Reported Meds & Prescriptions Reported Meds & Active Scripts Active Aripiprazole 5 Mg Tab 5 Mg PO DAILY 5 Days Reported Vistaril (Hydroxyzine Pamoate) 50 Mg Cap 50 Mg PO ONCE Valsartan 40 Mg Tab 20 Mg PO BID Wellbutrin SR 12 HR (Bupropion HCl) 100 Mg Tab 100 Mg PO Q12HR Seroquel (Quetiapine Fumarate) 400 Mg Tab 400 Mg PO DAILY Trazodone (Trazodone HCl) 300 Mg Tab 200 Mg PO HS Ativan (Lorazepam) 1 Mg Tab 1 Mg PO BID Clonidine (Clonidine HCl) 0.3 Mg Tab 0.3 Mg PO BID Lisinopril 10 Mg Tab 10 Mg PO DAILY Atorvastatin (Atorvastatin Calcium) 40 Mg Tab 40 Mg PO HS Flomax (Tamsulosin HCl) 0.4 Mg Cap 0.4 Mg PO HS Review of Systems Except as stated in HPI: all other systems reviewed are Neg Physical Exam Narrative GENERAL:Well appearing, no acute distress SKIN: Focused skin assessment warm and dry. HEAD: Atraumatic. Normocephalic. EYES: Pupils equal and round. No injection or drainage. ENT: Moist mucous membranes NECK: Trachea midline. CARDIOVASCULAR: Regular rate and rhythm. No murmur appreciated. RESPIRATORY: Clear to auscultation. Breath sounds equal bilaterally. GASTROINTESTINAL: Abdomen soft, non-tender, nondistended. MUSCULOSKELETAL: No obvious deformities. NEUROLOGICAL: Awake and alert. No obvious cranial nerve deficits. Moving all extremities. PSYCHIATRIC: Appropriate mood and affect; insight and judgment normal. Data Data Last Documented VS Vital Signs Date Time Temp Pulse Resp B/P (MAP) Pulse Ox O2 Delivery O2 Flow Rate FiO2 11/14/17 23:22 61 18 164/101 (122) 97 Room Air Orders Orders Urinalysis - C+S If Indicated (11/14/17 21:40) Psych Screen (11/14/17 21:40) Drug Screen, Random Urine (11/14/17 21:40) Labs Laboratory Tests Test 11/14/17 21:29 Urine Color LIGHT-YELLOW Urine Turbidity CLEAR Urine pH 5.5 Urine Specific Banks 1.002 Urine Protein NEG mg/dL Urine Glucose (UA) NEG mg/dL Urine Ketones NEG mg/dL Urine Occult Blood NEG Urine Nitrite NEG Urine Bilirubin NEG Urine Urobilinogen LESS THAN 2.0 MG/DL Urine Leukocyte Esterase NEG Urine WBC LESS THAN 1 /hpf Urine Squamous Epithelial Cells <1 /hpf Microscopic Urinalysis Comment CULT NOT INDICATED Urine Opiates Screen NEG Urine Barbiturates Screen NEG Urine Amphetamines Screen NEG Urine Benzodiazepines Screen NEG Urine Cocaine Screen NEG Urine Cannabinoids Screen NEG MDM Medical Decision Making Medical Screen Exam Complete: Yes Emergency Medical Condition: Yes Differential Diagnosis Homelessness, malingering, depression, schizophrenia Narrative Course This is a 57-year-old male who presents to the emergency department requesting psychiatric admission and refills on his blood pressure and psychiatric medications. He's received a refill on his clonidine this week and he received a prescription for Abilify on November 02 which he never filled. He saw Dr. Rosario our psychiatrist this morning who knows the patient well. His impression is that the patient has secondary gain from his visits to the emergency department and he is seeking long-term. The patient is not actively engaging in outpatient psychiatric treatment and is noncompliant with his medications. Dr. Rosario did not think the patient met Gatica act criteria and did not think he would benefit from an inpatient admission. Based on my exam of the patient I agree. The patient has a normal affect, does not appear depressed, and is very concerned with long-term during overnight in the emergency department. He does not appear acutely decompensated psychiatrically. I think he can be discharged and he can follow-up with Diego Bhatt as an outpatient. Diagnosis Primary Impression: Homelessness Patient Instructions: General Instructions Additional Instructions: Follow up with Sharla Bhatt in regards to psychiatric or substance related issues at: [address] [place], [place] [id number] Med/Other Pt SpecificInfo: No Change to Meds Disposition: 01 DISCHARGE HOME Condition: Stable Eileen Sanchez MD Nov 14, 2017 23:43
[2017-11-15 00:55] VITALS: BP 158/95
== END 2017-11-15 00:55 | disposition home or self-care (01) ==
LOC: NEDAMB 21:25 → NEPD 11-15 00:55
DX: F20.9 Schizophrenia, unspecified (principal); F41.8 Other specified anxiety disorders; I10 Essential (primary) hypertension; Z91.14 Patient's other noncompliance with medication regimen; Z59.0 Homelessness
CPT/HCPCS: 80307; 81001; 99283

== ENCOUNTER 2017-11-28 12:16 | Emergency (ER) | payer OTHER ==
[~2017-11-28] VITALS: Ht 177.8 cm; Wt 100.0 kg
[~2017-11-28 12:16] MED LIST changes: -AZIT250T3 PO; -CLON0.1T PO
[2017-11-28 12:35] VITALS: BP 167/85; PULSE 68; RESP 18; TEMP 98.2; O2SAT 96
--- NOTE | 2017-11-28 13:53 | PD ---
HPI Chief Complaint: Psychiatric Symptoms Time Seen by Provider: 12:36 Travel History International Travel<30 days: No Contact w/Intl Traveler<30days: No Traveled to known affect area: No History of Present Illness HPI 57-year-old male that presents to the ED for evaluation of Gavi claire. Patient was Gatica acted by police and sent to [facility] and evaluated yesterday [facility]. Patient has a significant history of elevated blood pressure and supposed to be on clonidine but does not take it because he does not have insurance. He has a history noncompliance as well as the friend and supposed to be on medications for this but has not been able to fill them secondary to having no insurance. Patient also has a history of homelessness and has been here before for different type of complaints. Patient states that he feels suicidal. Per Gavi he contacted police who Gatica acted him for his own safety. Indentation was sent here from [facility] is his blood pressure was elevated in the 200s systolic and they thought that he was outside of their scope of practice so he was sent here for eval. Patient states that he has a history of alcohol abuse. He denies any other substance abuse. He denies any actual plan. He denies any homicidal ideation. States having some leg swelling that is chronic. He has no allergies to medication. No injuries. Symptoms appear to have worsened the past couple days. PFSH Past Medical History Anxiety: Yes Depression: Yes Cardiac Catheterization: Yes Cardiovascular Problems: Yes (HTN) High Cholesterol: Yes Cerebrovascular Accident: Yes Coronary Artery Disease: Yes Diminished Hearing: No Headaches: No Hypertension: Yes Psychiatric: Yes (Reported history of treatment for Schizophrenia and Depression) Immunizations Current: No Schizophrenia: Yes Tetanus Vaccination: > 5 Years Influenza Vaccination: Yes Family History Family Myocardial Infarction: Yes Social History Alcohol Use: Yes Tobacco Use: No Substance Use: No (HX OF DRUG USE ) Allergies-Medications (Allergen,Severity, Reaction): Coded Allergies: No Known Allergies (Unverified , 11/28/17) Reported Meds & Prescriptions Reported Meds & Active Scripts Active Aripiprazole 5 Mg Tab 5 Mg PO DAILY 5 Days Reported Vistaril (Hydroxyzine Pamoate) 50 Mg Cap 50 Mg PO ONCE Valsartan 40 Mg Tab 20 Mg PO BID Wellbutrin SR 12 HR (Bupropion HCl) 100 Mg Tab 100 Mg PO Q12HR Seroquel (Quetiapine Fumarate) 400 Mg Tab 400 Mg PO DAILY Trazodone (Trazodone HCl) 300 Mg Tab 200 Mg PO HS Ativan (Lorazepam) 1 Mg Tab 1 Mg PO BID Clonidine (Clonidine HCl) 0.3 Mg Tab 0.3 Mg PO BID Lisinopril 10 Mg Tab 10 Mg PO DAILY Atorvastatin (Atorvastatin Calcium) 40 Mg Tab 40 Mg PO HS Flomax (Tamsulosin HCl) 0.4 Mg Cap 0.4 Mg PO HS Review of Systems Except as stated in HPI: all other systems reviewed are Neg Physical Exam Narrative GENERAL: SKIN: Warm and dry. HEAD: Atraumatic. Normocephalic. EYES: Pupils equal and round. No scleral icterus. No injection or drainage. ENT: No nasal bleeding or discharge. Mucous membranes pink and moist. Tongue is midline. No uvula deviation. NECK: Trachea midline. No JVD. CARDIOVASCULAR: Regular rate and rhythm. No murmurs, S3, S4. RESPIRATORY: No accessory muscle use. Clear to auscultation. Breath sounds equal bilaterally. GASTROINTESTINAL: Abdomen soft, non-tender, nondistended. Hepatic and splenic margins not palpable. MUSCULOSKELETAL: Extremities without clubbing, cyanosis, or edema. No obvious deformities. Full Of the Upper and Lower Extremities Bilaterally. 2+ Pulses Bilaterally. NEUROLOGICAL: Awake and alert. No obvious cranial nerve deficits. Motor grossly within normal limits. Five out of 5 muscle strength in the arms and legs. Normal speech. PSYCHIATRIC: Appropriate mood and affect; insight and judgment normal. Data Data Last Documented VS Vital Signs Date Time Temp Pulse Resp B/P (MAP) Pulse Ox O2 Delivery O2 Flow Rate FiO2 11/28/17 12:35 98.2 68 18 167/85 (112) 96 Orders Orders Psych Screen (11/28/17 12:38) Diet Regular Basic (11/28/17 Lunch) MDM Medical Decision Making Medical Screen Exam Complete: Yes Emergency Medical Condition: Yes Medical Record Reviewed: Yes Differential Diagnosis Depression versus suicidal ideation versus anxiety versus adjustment disorder versus mood disorder versus bipolar disorder versus schizophrenia versus paranoid disorder versus psychosis versus substance abuse versus alcohol abuse versus alcohol induced psychosis versus homicidality addition versus cutting versus personality disorder Narrative Course 57-year-old male that presents to the ED for evaluation of psych. Patient was properly examined and was found to have signs and symptoms consistent with psychiatric illness. Patient was Gatica acted and sent to a different facility but was brought here because the facility did not feel comfortable taking care of the patient secondary to hypertension. Patient has a history of noncompliance. Patient's blood pressure here was 160 systolic. I do not see any need for new medication given. Patient was already given clonidine at the other facility. Patient had blood work recently. No new blood work require at this time. Patient will be medically clear. Okay to be seen by psych. Mental health screening was discussed with the patient. Diagnosis Primary Impression: Depressed mood Additional Impression: Hypertension Qualified Codes: I10 - Essential (primary) hypertension Ruy Farias Nov 28, 2017 13:53
[2017-11-28 15:19] VITALS: BP 210/82; PULSE 76; RESP 16; TEMP 98.5; O2SAT 99
[2017-11-28 16:42] VITALS: BP 212/92
[2017-11-28] MEDS ORDERED: cloNIDine HCL 0.2 MG TAB PO ONE (16:45)
[2017-11-28 18:26] VITALS: BP 193/91; PULSE 71; RESP 16; TEMP 99.1; O2SAT 97
[2017-11-29 04:59] VITALS: BP 189/94
[2017-11-29 10:10] VITALS: BP 192/107; PULSE 78; RESP 16; TEMP 98.5; O2SAT 96
[2017-11-29] MEDS ORDERED: cloNIDine HCL 0.1 MG TAB PO ONE (10:15)
[2017-11-29] MEDS ORDERED: CLON0.3T PO (12:07)
[2017-11-29] MEDS ORDERED: SERO400T PO (12:07)
[2017-11-29] MEDS ORDERED: LISI10TA3 PO (12:07)
[2017-11-29] MEDS ORDERED: TRAZ300T2 PO (12:07)
--- NOTE | 2017-11-29 12:13 | PD ---
History of Present Illness Chief Complaint: Psychiatric Symptoms Time Seen by Provider: 12:00 Travel History International Travel<30 Days: No Contact w/Intl Traveler<30days: No Known affected area: No Legal Status Legal Status: Gatica Act Gatica Act Signed By: STEFANI CHENEY Gatica Act Comment: 11/27/2017 8:50 PM History of Present Illness: 57-year-old male presents under a Gatica act with self-admitted history of alcoholism and self-admitted history of recent relapse. Patient's Gatica act by law enforcement indicates he is suicidal and schizophrenic. Patient does not currently show evidence of either suicidality or schizophrenia. He would like to get back on his medications, including blood pressure medicines and psychotropic medicines. It is noteworthy, the patient indicates he takes 100 mg of Seroquel per day, which is not a therapeutic dose for someone who is schizophrenic. Patient is not complaining of auditory hallucinations, visual hallucinations, delusional thinking, etc. He would like to go to a sober living house as he is not allowed to live with his daughter and ex-. He does state the reason he moved to this area from [place] is to be closer to them. PFSH Past Medical History Anxiety: Yes Depression: Yes Cardiac Catheterization: Yes Cardiovascular Problems: Yes (HTN) High Cholesterol: Yes Cerebrovascular Accident: Yes Coronary Artery Disease: Yes Diminished Hearing: No Headaches: No Hypertension: Yes Psychiatric: Yes (Reported history of treatment for Schizophrenia and Depression) Immunizations Current: No Tetanus Vaccination: > 5 Years Influenza Vaccination: Yes Psychiatric History Psychiatric History Hx Psychiatric Treatment: Patient with a history of schizophrenia He has received care at [facility]. Last [facility] inpatient admission was Oct 2017. Again, this physician does not currently see any significant clinically objective evidence of schizophrenia. Patient's primary problem appears to be alcoholism from a mental health standpoint. Records from 2017 were reviewed. History of Inpatient Treatment: Yes Guns or firearms in home: No Social History Hx Alcohol Use: Yes Hx Tobacco Use: No Hx Substance Use: No Substance Use Type: Alcohol Hx of Substance Use Treatment: Yes Allergies-Medications (Allergen,Severity, Reaction): Coded Allergies: No Known Allergies (Unverified , 11/28/17) Reported Meds & Prescriptions Reported Meds & Active Scripts Active Seroquel (Quetiapine Fumarate) 400 Mg Tab 100 Mg PO DAILY Trazodone (Trazodone HCl) 300 Mg Tab 200 Mg PO HS Clonidine (Clonidine HCl) 0.3 Mg Tab 0.3 Mg PO BID Lisinopril 10 Mg Tab 10 Mg PO DAILY Aripiprazole 5 Mg Tab 5 Mg PO DAILY 5 Days Reported Vistaril (Hydroxyzine Pamoate) 50 Mg Cap 50 Mg PO ONCE Valsartan 40 Mg Tab 20 Mg PO BID Wellbutrin SR 12 HR (Bupropion HCl) 100 Mg Tab 100 Mg PO Q12HR Ativan (Lorazepam) 1 Mg Tab 1 Mg PO BID Atorvastatin (Atorvastatin Calcium) 40 Mg Tab 40 Mg PO HS Flomax (Tamsulosin HCl) 0.4 Mg Cap 0.4 Mg PO HS Review of Systems Psychiatric: COMPLAINS OF: Anxiety, Mood changes Except as stated in HPI: all other systems reviewed are Neg Mental Status Examination Appearance: Appropriate Consciousness: Alert Orientation: x4 Motor Activity: Normal gait Speech: Unremarkable Language: Adequate Fund of Knowledge: Adequate Attention and Concentration: Adequate Memory: Unremarkable Mood: Anxious Affect: Anxious Thought Process & Associations: Intact Thought Content: Appropriate Hallucination Type: None Delusion Type: None Suicidal Ideation: No Suicidal Plan: No Suicidal Intention: No Homicidal Ideation: No Homicidal Plan: No Homicidal Intention: No Insight: Adequate Judgment: Adequate MDM Medical Decision Making Medical Record Reviewed: Yes Assessment/Plan Patient interviewed at bedside. Electronic medical record reviewed extensively. Case discussed with nurse Metzger. This physician does find the patient to be alcoholic and manipulative. This physician does not find the patient to be actually schizophrenic although this assessment is based on 1 interview. In any event, patient remains competent to make medical decisions and wants to go to sober living house. He wants refills for his medicines, which this physician did. He is not in need of psychiatric hospitalization and he does not qualify for a Gatica act. Orders Orders Psych Screen (11/28/17 12:38) Diet Regular Basic (11/28/17 Lunch) Diet Regular Basic (11/28/17 Dinner) Clonidine (Catapres) (11/28/17 16:45) Diet Regular Basic (11/29/17 Breakfast) Diet Regular Basic (11/29/17 Lunch) Clonidine (Catapres) (11/29/17 10:15) Quetiapine (Seroquel) (11/29/17 12:15) Fluoxetine (Prozac) (11/29/17 12:15) Lisinopril (Prinivil) (11/29/17 12:15) Clonidine (Catapres) (11/29/17 12:15) Results Vital Signs Date Time Temp Pulse Resp B/P (MAP) Pulse Ox O2 Delivery O2 Flow Rate FiO2 11/29/17 10:10 98.5 78 16 192/107 (135) 96 Room Air 11/29/17 04:59 189/94 (125) 11/28/17 18:26 99.1 71 16 193/91 (125) 97 Room Air 11/28/17 16:42 212/92 (132) 11/28/17 15:19 98.5 76 16 210/82 (124) 99 Room Air 11/28/17 12:35 98.2 68 18 167/85 (112) 96 Diagnosis Primary Impression: Alcohol abuse Prescriptions Quetiapine (Seroquel) 400 Mg Tab 100 MG PO DAILY, #30 TAB 0 Refills Prov: Prosper Chavez MD 11/29/17 Trazodone (Trazodone) 300 Mg Tab 200 MG PO HS for Control Depression, #30 TAB 0 Refills Prov: Prosper Chavez MD 11/29/17 Clonidine (Clonidine) 0.3 Mg Tab 0.3 MG PO BID for Blood Pressure Management, #60 TAB 0 Refills Prov: Prosper Chavez MD 11/29/17 Lisinopril (Lisinopril) 10 Mg Tab 10 MG PO DAILY, #30 TAB 0 Refills Prov: Prosper Chavez MD 11/29/17 Prosper Chavez MD Nov 29, 2017 12:13
[2017-11-29] MEDS ORDERED: cloNIDine HCL 0.3 MG TAB PO ONE (12:15)
[2017-11-29] MEDS ORDERED: LISINOPRIL 10 MG TAB PO ONE (12:15)
[2017-11-29] MEDS ORDERED: FLUoxetine HCL 20 MG CAP PO ONE (12:15)
[2017-11-29] MEDS ORDERED: QUEtiapine FUMARATE 100 MG TAB PO ONE (12:15)
[2017-11-29 13:00] VITALS: BP 174/111; PULSE 64; RESP 16; O2SAT 96
[2017-11-29 14:02] VITALS: BP 185/92; PULSE 64; RESP 16; O2SAT 96
--- NOTE | 2017-11-29 14:02 | PD ---
Physical Exam Time Seen by Provider: 13:[address] Chavez has evaluated the patient, lifted Gavi act and cleared the patient for discharge. Data Data Last Documented VS Vital Signs Date Time Temp Pulse Resp B/P (MAP) Pulse Ox O2 Delivery O2 Flow Rate FiO2 11/29/17 13:00 64 16 174/111 (132) 96 Room Air 11/29/17 10:10 98.5 Orders Orders Psych Screen (11/28/17 12:38) Diet Regular Basic (11/28/17 Lunch) Diet Regular Basic (11/28/17 Dinner) Clonidine (Catapres) (11/28/17 16:45) Diet Regular Basic (11/29/17 Breakfast) Diet Regular Basic (11/29/17 Lunch) Clonidine (Catapres) (11/29/17 10:15) Quetiapine (Seroquel) (11/29/17 12:15) Fluoxetine (Prozac) (11/29/17 12:15) Lisinopril (Prinivil) (11/29/17 12:15) Clonidine (Catapres) (11/29/17 12:15) MDM Supervised Visit with [facility]: No Narrative Course Dr. Chavez has evaluated the patient, lifted Gavi act and cleared the patient for discharge. Patient contracts safety. Denies suicidal or homicidal ideations. Patient will be provided community resource packet to /[facility] for follow-up. Has friends and family for support. Patient was medically cleared by alternate provider prior to psych screening. Patient has been evaluated by psychiatry and and is now cleared for discharge. Diagnosis Primary Impression: Alcohol abuse Referrals: [facility] (Out patient) [facility] Primary Care Physician Psychiatrist [facility] Patient Instructions: Abuse of Alcohol (ED), Alcohol Dependence (ED), Alcohol Intoxication (ED), General Instructions Additional Instruction: Contract safety to your self and others Stop drinking alcohol Follow-up with psychiatry Follow-up with primary care provider Follow-up with B[facility] Smith Return to the emergency department immediately with worsening of symptoms Med/Other Pt SpecificInfo: Prescription(s) given Scripts Quetiapine (Seroquel) 400 Mg Tab 100 MG PO DAILY, #30 TAB 0 Refills Prov: Prosper Chavez MD 11/29/17 Trazodone (Trazodone) 300 Mg Tab 200 MG PO HS for Control Depression, #30 TAB 0 Refills Prov: Prosper Chavez MD 11/29/17 Clonidine (Clonidine) 0.3 Mg Tab 0.3 MG PO BID for Blood Pressure Management, #60 TAB 0 Refills Prov: Prosper Chavez MD 11/29/17 Lisinopril (Lisinopril) 10 Mg Tab 10 MG PO DAILY, #30 TAB 0 Refills Prov: Prosper Chavez MD 11/29/17 Disposition: 01 DISCHARGE HOME Condition: Stable Adelia Storey Nov 29, 2017 14:02
== END 2017-11-29 15:04 | disposition home or self-care (01) ==
LOC: NEPD 12:16 → NEPJ 11-29 15:04
DX: F10.10 Alcohol abuse, uncomplicated (principal); F41.9 Anxiety disorder, unspecified; F32.9 Major depressive disorder, single episode, unspecified; I10 Essential (primary) hypertension; E78.00 Pure hypercholesterolemia, unspecified; I25.10 Atherosclerotic heart disease of native coronary artery without angina pectoris; Z86.73 Personal history of transient ischemic attack (TIA), and cerebral infarction without residual deficits; Z79.899 Other long term (current) drug therapy
CPT/HCPCS: 99284